=== PATIENT | male | born 1945 | race Caucasian/White ===

== ENCOUNTER 2018-04-01 08:09 | Day surgery (SDC) | payer OTHER ==
[~2018-04-01] VITALS: Ht 170.2 cm; Wt 81.3 kg
[~2018-04-01 08:09] MED LIST: ALBU90OI61 INH; ASCO1ER; ASPI81EC; Accuneb0.63 MG/3 INH; CALCAVITDA; CEPH500 PO; CIPR500 PO; CLON.1 PO; CYCL10; FLUT1DIS5 INH; Flonase 0.05% N16 GM; HYDACE5; HYDACE5 PO; IBUP600; IBUP600 PO; INDO50 PO; LORA2 PO; LOVA40 PO; MIRALAX17 GM; Mobic15 MG PO; Omeprazole20 M1 PO; PRED20 PO; RXHYDACE PO; RXLORA1 PO; SULTRIDS PO; TIOT18 INH; TRAZ50; UNKNOW MED; VITAMIN D31000 UNIT PO; VOLTAREN100 GM; Vitamin C500 M3 PO
== END 2018-04-01 13:38 | disposition home or self-care (01) ==
LOC: ORSCSDS 08:09
PROVIDERS: Otolaryngology
PROC: 09BM0ZZ Excision of Nasal Septum, Open Approach (ICD-10-PCS; principal; 2018-04-01 10:00)
PROC: 09BL0ZZ Excision of Nasal Turbinate, Open Approach (ICD-10-PCS; principal; 2018-04-01 10:00)
DX: J34.2 Deviated nasal septum (principal); J34.3 Hypertrophy of nasal turbinates; J34.89 Other specified disorders of nose and nasal sinuses; J44.9 Chronic obstructive pulmonary disease, unspecified; I10 Essential (primary) hypertension; F41.9 Anxiety disorder, unspecified; K21.9 Gastro-esophageal reflux disease without esophagitis; Z87.891 Personal history of nicotine dependence; Z79.899 Other long term (current) drug therapy
CPT/HCPCS: J1100; J2370; J2405; J2710; J3010; J7120

== ENCOUNTER 2018-09-30 11:58 | Observation (INO) | payer OTHER ==
[~2018-09-30] VITALS: Ht 170.2 cm; Wt 82.5 kg
[~2018-09-30 11:58] MED LIST changes: -ALBU90OI61 INH
[2018-09-30] MEDS ORDERED: VOLTAREN TOP (12:56)
[2018-09-30 13:02] LABS: BASOPHILS ABSOLUTE AUTO 0.07 K/mm3 (0.00-0.23); BASOPHILS PERCENT AUTO 1 % (0-2); EOSINOPHILS ABSOLUTE AUTO 0.17 K/mm3 (0.00-0.68); EOSINOPHILS PERCENT AUTO 2 % (0-6); Hematocrit 45.8 % (37.0-53.0); Hemoglobin 15.3 g/dL (13.5-17.5); IMMATURE GRAN ABSOLUTE AUTO 0.03 K/mm3 (0.00-0.10); IMMATURE GRAN PERCENT AUTO 0 % (0-1); LYMPHOCYTES ABSOLUTE AUTO 1.58 K/mm3 (0.84-5.20); LYMPHOCYTES PERCENT AUTO 18 % (21-46); MONOCYTES ABSOLUTE AUTO 0.82 K/mm3 (0.16-1.47); MONOCYTES PERCENT AUTO 9 % (4-13); Mean Corpuscular HGB 30.6 pg (26.0-34.0); Mean Corpuscular HGB Conc 33.4 g/dL (31.5-36.5); Mean Corpuscular Volume 92 fL (80-100); Mean Platelet Volume 9.2 fL (9.1-12.4); NEUTROPHILS ABSOLUTE AUTO 6.02 K/mm3 (1.96-9.15); NEUTROPHILS PERCENT AUTO 69 % (41-73); Platelet Count 244 K/mm3 (150-400); RDW Standard Deviation 43.6 fL (35.1-46.3); White Blood Cell Count 8.69 K/mm3 (4.00-11.30)
[2018-09-30 13:17] LABS: Alanine Aminotransfer (ALT/SGP 30 U/L (12-78); Albumin, Blood 3.7 g/dL (3.4-5.0); Albumin/Globulin Ratio 1.2 (0.8-1.8); Alk Phos 67 U/L (50-136); Anion Gap 8 mmol/L (6-16); Aspartate Aminotrans (AST/SGOT 19 U/L (12-37); Bilirubin, Total 0.6 mg/dL (0.1-1.0); Blood Urea Nitrogen 20 mg/dL (8-24); Bun/Creatinine Ratio 16.8 (12.0-20.0); CO2, Blood 24 mmol/L (21-32); Calcium, Blood 8.7 mg/dL (8.5-10.1); Chloride, Blood 103 mmol/L (98-108); Creatinine, Blood 1.19 mg/dL (0.60-1.20); Ethanol (Alcohol), Blood, Med <3 mg/dL; Globulin, Blood 3.1 g/dL (2.2-4.0); Glomerular Filtration Rate >60 (60-); Glucose, Blood 129 mg/dL (70-99); Potassium, Blood 4.1 mmol/L (3.5-5.5); Sodium, Blood 135 mmol/L (136-145); Total Protein, Blood 6.8 g/dL (6.4-8.2)
[2018-09-30] MEDS ORDERED: NITR.4SL SL (14:40)
[2018-09-30] MEDS ORDERED: ALBU90OI61 INH (14:46)
--- NOTE | 2018-09-30 17:10 | NUR ---
PT IS ALERT AND ORIENTED. HIS BROTHER TOLD THE NURSE IN THE ER THAT THE PT HAS BEEN MORE CONFUSED LATELY. NO COMPLAINTS OF PAIN. TELE ON, NSR AT 61 BPM. PT IS IMPULSIVE SO BED ALARM IS ON. SCD'S IN PLACE. URINAL AT THE BEDSIDE. WILL CONTINUE TO MONITOR.
--- NOTE | 2018-09-30 17:12 | NUR ---
Echocardiogram completed.
--- NOTE | 2018-09-30 17:57 | NUR ---
PT ARRIVED TO HOSPITAL ROOM AT 1600 VIA WHEELCHAIR.
[2018-10-01 05:16] LABS: CHOL/HDL RATIO 2.4; Cholesterol 155 mg/dL (50-200); HDL Cholesterol 65 mg/dL (>39); LDL/HDL RATIO 1.1; Low Density Lipoprotein Chol 71 mg/dL (0-110); Triglycerides 96 mg/dL (30-160); Very Low Density Lipoprot Chol 19 mg/dL (6-32)
--- NOTE | 2018-10-01 05:38 | NUR ---
SHIFT SUMMARY PT SLEPT WELL, USES URINAL AT BEDSIDE PER SELF. NO ACUTE EVENTS NOTED DURING THE NIGHT. WILL CONTINUE TO MONITOR.
--- NOTE | 2018-10-01 07:51 | NUR ---
SIGNIFICANT RIGHT SIDED HAND WEAKNESS WHEN SQUEEZING COMPARED TO PT'S LEFT SIDE.
--- NOTE | 2018-10-01 10:41 | NUR ---
PT IS ALERT AND ORIENTED AND COOPERATIVE WITH CARE. HE IS A SBA WITH A GAIT BELT. HE FORGETS HIS OWN LIMITATIONS. HIS FAMILY IS AT THE BEDSIDE. HE PARTICIPATED WITH OT AND PT TODAY. DR. CASTELLANO STATED THAT THE PATIENT CAN BE DISCHARGED HOME IF PT AND OT RECCOMEND SO. WILL CONTINUE TO MONITOR.
[2018-10-01] MEDS ORDERED: ASPI81CH PO (11:52)
[2018-10-01] MEDS ORDERED: CLOP75 PO (11:55)
[2018-10-01] MEDS ORDERED: AMLO5 PO (11:58)
--- NOTE | 2018-10-01 13:08 | NUR ---
OUTPATIENT PT/OT SCRIPT GIVEN TO PT. FOLLOW UP APPOINTMENTS MADE WITH [facility] AND REFERRAL TO ELECTRIC ENGINE MECHANIC MADE FOR LOOP RECORDER MONITORING.
--- NOTE | 2018-10-01 15:29 | NUR ---
PT DISCHARGED HOME WITH OUTPATIENT PHYSICAL AND OCCUPATIONAL THERAPY. PT TRANSPORTED DOWNSTAIRS IN WHEELCHAIR BY DEVELOPMENT ANALYST. PT TRANSPORTED HOME BY HIS BROTHER.
== END 2018-10-01 14:53 | disposition home or self-care (01) ==
LOC: ER 11:58 → MEDS 11:59 → ENPENDDIS 10-01 11:14 → MEDS 10-01 14:53
PROVIDERS: Emergency Medicine; ADMIT Internal Medicine
DX: I63.9 Cerebral infarction, unspecified (principal); F10.20 Alcohol dependence, uncomplicated; I10 Essential (primary) hypertension; J44.9 Chronic obstructive pulmonary disease, unspecified; I65.23 Occlusion and stenosis of bilateral carotid arteries; F41.9 Anxiety disorder, unspecified; E78.5 Hyperlipidemia, unspecified; K21.9 Gastro-esophageal reflux disease without esophagitis; Z87.891 Personal history of nicotine dependence; Z79.899 Other long term (current) drug therapy; Y90.0 Blood alcohol level of less than 20 mg/100 ml
CPT/HCPCS: 36415; 70450; 70551; 72125; 80053; 80061; 83036; 85025; 93005; 93010; 93306; 93880; 96372; 97112; 97162; 97166; 97530; 99285-25; G0378; G0480; J1650

== ENCOUNTER 2018-11-16 07:33 | Inpatient (IN) | payer OTHER ==
[~2018-11-16] VITALS: Ht 170.2 cm; Wt 87.4 kg
[~2018-11-16 07:33] MED LIST changes: +ALBU90OI61 INH; +AMLO5 PO; +ASPI81CH PO; +CLOP75 PO; +NITR.4SL SL; +VOLTAREN TOP
[2018-11-16 08:23] LABS: Source, Urine Clean Catch
[2018-11-16 08:57] LABS: Bilirubin, Urine Neg (Neg); Blood, Urine 1+ (Neg); Glucose Qualitative, Urine Neg (Neg); Ketones, Urine 1+ (Neg); Leukocyte Esterase, Urine Neg (Neg); Nitrite, Urine Neg (Neg); Protein, Urine 2+ (Neg); Urobilinogen, Urine 2+ (Normal)
[2018-11-16 09:00] LABS: Appearance, Urine Hazy (Clear); Color, Urine Yellow (P-Yellow)
[2018-11-16 09:04] LABS: Red Blood Cells, Urine 0-2 /hpf (0-2)
[2018-11-16 09:05] LABS: Bacteria Few /hpf; Mucus Mod (0-Heavy); Squamous Epithelial Cells Rare /hpf (Few)
[2018-11-16 09:06] LABS: BASOPHILS ABSOLUTE AUTO 0.06 K/mm3 (0.00-0.23); BASOPHILS PERCENT AUTO 0 % (0-2); EOSINOPHILS PERCENT AUTO 0 % (0-6); Hematocrit 38.8 % (37.0-53.0); Hemoglobin 12.8 g/dL (13.5-17.5); IMMATURE GRAN ABSOLUTE AUTO 1.53 K/mm3 (0.00-0.10); IMMATURE GRAN PERCENT AUTO 5 % (0-1); LYMPHOCYTES ABSOLUTE AUTO 0.47 K/mm3 (0.84-5.20); LYMPHOCYTES PERCENT AUTO 2 % (21-46); MONOCYTES ABSOLUTE AUTO 1.64 K/mm3 (0.16-1.47); MONOCYTES PERCENT AUTO 5 % (4-13); Mean Corpuscular Volume 91 fL (80-100); Mean Platelet Volume 8.9 fL (9.1-12.4); NEUTROPHILS PERCENT AUTO 88 % (41-73); Platelet Count 425 K/mm3 (150-400); RDW Coefficient Variation 12.8 % (11.7-14.2); RDW Standard Deviation 42.5 fL (35.1-46.3); Red Blood Cell Count 4.26 M/mm3 (4.30-5.90)
[2018-11-16 09:24] LABS: Albumin, Blood 2.1 g/dL (3.4-5.0); Albumin/Globulin Ratio 0.4 (0.8-1.8); Bilirubin, Total 0.9 mg/dL (0.1-1.0); Bun/Creatinine Ratio 28.7 (12.0-20.0); Calcium, Blood 8.4 mg/dL (8.5-10.1); Creatinine, Blood 1.64 mg/dL (0.60-1.20); Globulin, Blood 4.7 g/dL (2.2-4.0); Potassium, Blood 4.2 mmol/L (3.5-5.5); Total Protein, Blood 6.8 g/dL (6.4-8.2)
[2018-11-16] MEDS ORDERED: CLON.1 PO (13:15)
--- NOTE | 2018-11-16 18:39 | NUR ---
SHIFT SUMMARY. 1500 PT ADMITTED TO MEDICAL FLOOR VIA GURNEY. PT SELF TRANSFERED TO BED WITH CGA. PT HAS REQUIRED 2L O2 NC AT REST AND 4L O2 WITH ACTIVITY. DYSPNEA WITH EXERTION. DR. WILLIAMSON REPORTS THAT HE SPOKE WITH DR. TUBBS AND DR. TUBBS PLANS TO SEE PT TOMORROW FOR PROCEDURE. IV FLUIDS STARTED, 1G OF ROCEPHIN IV GIVEN. PT C/O CHRONIC PAIN TO BACK, NORCO 5/325 PO GIVEN. NO N/V. GOOD PO INTAKE.
--- NOTE | 2018-11-17 05:28 | NUR ---
SHIFT SUMMARY PT HAS BEEN AWAKE MUCH OF THE NIGHT. HAS COUGHING ATTACKS WHICH MAKE HIM MORE DYSPNEIC AND ANXIOUS. SPUTUM SPECIMEN OBTAINED, AND HOSPITALIST NOTIFIED OF PT COUGH. ORDERS RECEIVED. RT IN FOR PRN BREATHING TREATMENTS T/O NIGHT. PT MEDICATED FOR RIGHT FOOT PAIN THIS AM. IVF'S INFUSING PER PUMP WITHOUT DIFFICULTY. WILL CONTINUE TO MONITOR.
[2018-11-17 05:30] LABS: BASOPHILS ABSOLUTE AUTO 0.07 K/mm3 (0.00-0.23); BASOPHILS PERCENT AUTO 0 % (0-2); EOSINOPHILS ABSOLUTE AUTO 0.22 K/mm3 (0.00-0.68); EOSINOPHILS PERCENT AUTO 1 % (0-6); Hematocrit 37.2 % (37.0-53.0); Hemoglobin 12.2 g/dL (13.5-17.5); IMMATURE GRAN PERCENT AUTO 2 % (0-1); LYMPHOCYTES ABSOLUTE AUTO 0.75 K/mm3 (0.84-5.20); LYMPHOCYTES PERCENT AUTO 3 % (21-46); MONOCYTES ABSOLUTE AUTO 1.53 K/mm3 (0.16-1.47); MONOCYTES PERCENT AUTO 5 % (4-13); Mean Corpuscular HGB 29.9 pg (26.0-34.0); Mean Corpuscular HGB Conc 32.8 g/dL (31.5-36.5); Mean Corpuscular Volume 91 fL (80-100); Mean Platelet Volume 8.5 fL (9.1-12.4); NEUTROPHILS ABSOLUTE AUTO 26.69 K/mm3 (1.96-9.15); NEUTROPHILS PERCENT AUTO 90 % (41-73); Platelet Count 420 K/mm3 (150-400); RDW Standard Deviation 43.5 fL (35.1-46.3); Red Blood Cell Count 4.08 M/mm3 (4.30-5.90); White Blood Cell Count 29.76 K/mm3 (4.00-11.30)
[2018-11-17 06:04] LABS: Bun/Creatinine Ratio 33.3 (12.0-20.0); Creatinine, Blood 1.53 mg/dL (0.60-1.20); Potassium, Blood 4.2 mmol/L (3.5-5.5)
--- NOTE | 2018-11-17 13:10 | NUR ---
PATIENT ARRIVED FROM MEDICAL FLOOR ROOM 324 TO ICU 15 AFTER RAPID RESPONSE WAS CALLED, PATIENT ARRIVED VIA FLOOR BED AND WAS MOVED TO ICU BED VIA SLIDER WITH 4 ASSIST, ON NRB AT 15 L, VISIBLE WORK OF ACCESSORY MUSCLES BREATHING, RAMSAY CATHETER WAS INSERTED D/T PATIENT INABILITY TO VOID, IMMEDIATE URINE RETURN NOTED, UA SAMPLE SENT, PATIENT WAS THEN PLACED ON NC BY JUSTIN RT, PATIENT ABLE TO SPEAK AT THIS TIME, AND STATED THAT "I CHOCKED ON SOME CHICKEN FROM MY LUNCH, BY I CHOKE ON MY FOOD ALL THE TIME", DR. TUBBS IN TO SEE PATIENT, NEW ORDERS RECEIVED. PATIENT WAS ORIENTED TO ROOM AND NEW ENVIRONMENT, CALL LIGHT EXPLAINED AND IN REACH, WILL CONTINUE TO MONITOR.
--- NOTE | 2018-11-17 13:20 | NUR ---
PT TRANSPORTED TO ICU AT 13:10.
[2018-11-17 13:29] LABS: Source, Urine Catheter
[2018-11-17 13:33] LABS: Appearance, Urine Clear (Clear); Bilirubin, Urine Neg (Neg); Blood, Urine Neg (Neg); Color, Urine Yellow (P-Yellow); Glucose Qualitative, Urine Neg (Neg); Ketones, Urine Neg (Neg); Leukocyte Esterase, Urine Neg (Neg); Nitrite, Urine Neg (Neg); Protein, Urine 1+ (Neg); Urobilinogen, Urine 1+ (Normal)
--- NOTE | 2018-11-17 14:45 | NUR ---
THORACENTESIS PERFORMED AT BEDSIDE BY DR. TUBBS, WITH ASSISTANCE OF THIS RN, AND JACQUE, STAFF DEVELOPMENT MANAGER, PATIENT WAS PLACED IN A SITTING POSITION LEANING FORWARD AND PLEURAL FLUID EXTRACTED FROM LEFT LUNG, PATIENT TOLERATED WELL, WHEN PROCEDURE WAS FINISHED BANDAID APPLIED TO INCISION SITE AND PATIENT RETURNED TO BED, POSITIONED FOR COMFORT, CALL LIGHT IN REACH, WILL CONTINUE TO MONITOR.
[2018-11-17 16:06] LABS: Automated BF RBC Count 0.009 M/mm3 (0-0); Body Fluid WBC Count 8699 /mm3 (0-999); RBC Count, Body Fluid 9000 /mm3 (0-0)
[2018-11-17 16:07] LABS: Automated BF WBC Count 8.699 K/mm3 (0-999)
[2018-11-17 16:14] LABS: Glucose, Body Fluid 1 mg/dL; Protein, Body Fluid 4.6 g/dL
[2018-11-17 16:23] LABS: Lactate Dehydrogenase, Body Fl 2668 U/L
[2018-11-17 17:07] LABS: Appearance, Body Fluid Cloudy (Clear); Total Cell Count, Body Fluid 100
--- NOTE | 2018-11-17 17:55 | NUR ---
SHIFT SUMMARY NOTE: PATIENT RESTING COMFORTABLY, STATES THAT HE "FEELS BETTER" AFTER THORACENTESIS, PATIENT ARRIVED IN ICU 15 AFTER RAPID RESPONSE WAS CALLED ON HIM AFTER HE ASPIRATED ON CHICKEN WHILE EATING LUNCH, PLEURAL FLUID SEND TO LAB FOR ANALYSIS, RAMSAY CATHETER WAS INSERTED D/T PATIENT'S EXTREME SOB WITH EXERTION, CONTINUOUS TO DRAIN DARK YELLOW CLEAR URINE, PATIENT IS NOW ON ZOSYN AND VACOMYCIN, CALL LIGHT IN REACH, WILL CONTINUE TO MONITOR AND GIVE REPORT TO ONCOMING SULKY DRIVER. FOR DETAILS SEE SHIFT ASSESSMENT DOCUMENTATION AND NURSES NOTES.
--- NOTE | 2018-11-17 20:24 | NUR ---
CARE ASSUMED REPORT RECEIVED, CARE ASSUMED AT 1900. UPON ARRIVAL TO SHIFT, PT ON 9 LPM NASAL CANNULA. PT PLACED ON OXYMIZER BY TATYANA, RT. 02 SAT HIGH 80'S, LOW 90'S, TITRATED TO 10 LPM. OTHERWISE, VITALS STABLE. PT CALM, IN NO SIGNS OF ACUTE DISTRESS. DISCUSSED PLAN OF CARE WITH PT AND PT AGREEABLE. SEE SHIFT ASSESSMENT/VITALS FLOWSHEET. PT AGREES TO CALL FOR NEEDS.
--- NOTE | 2018-11-18 02:46 | NUR ---
UPDATE PT CONTINUES TO REQUIRE 10 LPM OXYMIZER TO MAINTAIN SATS IN HIGH 80'S, LOW 90'S. PT NOTED ON SEVERAL OCCASIONS TO WAKE UP FROM DEEP SLEEP ANXIOUS, SHORT OF BREATH, TACHYPNEIC AND DESATURATING INTO MID TO LOW 80'S. ABLE TO VERBALLY REDIRECT PATIENT INITIALLY, BUT EPISODES BECAME MORE FREQUENT AND PT BECAME INCREASINGLY AGITATED AND UNABLE TO EXPRESS NEEDS. LUNG SOUNDS CONTINUE TO BE COARSE THROUGHOUT. UPDATED DR. TUBBS. NEW ORDER FOR BIPAP. RT TATYANA NOTIFIED. MEANWHILE PT COMPLAINING OF CHEST PAIN WITH INCREASED BP. NO CHANGES NOTED TO HEART MONITOR. NITRO GIVEN, CHEST PAIN AND ANXIETY RESOLVED. BIPAP PLACED BY RT TATYANA AND SINCE THEN PT HAS SLEPT SOUNDLY, AROUSING EASILY FOR REASSESSMENT.
[2018-11-18 03:57] LABS: BASOPHILS ABSOLUTE AUTO 0.04 K/mm3 (0.00-0.23); BASOPHILS PERCENT AUTO 0 % (0-2); EOSINOPHILS ABSOLUTE AUTO 0.01 K/mm3 (0.00-0.68); EOSINOPHILS PERCENT AUTO 0 % (0-6); Hematocrit 35.1 % (37.0-53.0); Hemoglobin 11.1 g/dL (13.5-17.5); IMMATURE GRAN ABSOLUTE AUTO 0.19 K/mm3 (0.00-0.10); IMMATURE GRAN PERCENT AUTO 1 % (0-1); LYMPHOCYTES ABSOLUTE AUTO 0.37 K/mm3 (0.84-5.20); LYMPHOCYTES PERCENT AUTO 2 % (21-46); MONOCYTES ABSOLUTE AUTO 0.68 K/mm3 (0.16-1.47); MONOCYTES PERCENT AUTO 3 % (4-13); Mean Corpuscular HGB 29.1 pg (26.0-34.0); Mean Corpuscular HGB Conc 31.6 g/dL (31.5-36.5); Mean Corpuscular Volume 92 fL (80-100); NEUTROPHILS PERCENT AUTO 95 % (41-73); Platelet Count 390 K/mm3 (150-400); RDW Coefficient Variation 13.2 % (11.7-14.2); RDW Standard Deviation 44.5 fL (35.1-46.3); Red Blood Cell Count 3.81 M/mm3 (4.30-5.90); White Blood Cell Count 23.19 K/mm3 (4.00-11.30)
[2018-11-18 04:15] LABS: Anion Gap 7 mmol/L (6-16); Blood Urea Nitrogen 39 mg/dL (8-24); Bun/Creatinine Ratio 33.9 (12.0-20.0); CO2, Blood 20 mmol/L (21-32); Calcium, Blood 7.9 mg/dL (8.5-10.1); Chloride, Blood 109 mmol/L (98-108); Creatinine, Blood 1.15 mg/dL (0.60-1.20); Glomerular Filtration Rate >60 (60-); Glucose, Blood 180 mg/dL (70-99); Potassium, Blood 4.3 mmol/L (3.5-5.5); Sodium, Blood 136 mmol/L (136-145)
--- NOTE | 2018-11-18 06:27 | NUR ---
SUMMARY SINCE PREVIOUS NOTE, PT ASLEEP ON BIPAP. WHEN WAKING PATIENT UP FOR MORNING ASSESSMENT, PT CONFUSED AND FEARFUL. AFTER APPROX 5 MINUTES OF LIGHTS ON AND TALKING WITH PATIENT HE BEGAN TO REORIENT HIMSELF. SINCE THEN, PT ON OXYMIZER, 02 SATS IN 90'S. PT AROUSES EASILY, ALERT AND ORIENTED. OTHERWISE, ASSESSMENTS UNCHANGED. VITALS STABLE, SEE FLOWSHEET.
--- NOTE | 2018-11-18 07:05 | NUR ---
ASSUMED CARE: RECEIVED REPORT FROM NOC RN. PT APPEARS TO BE SLEEPING UPON ENTERING ROOM WITH HEAD OF BED AT APPROX 30 DEGREE ANGLE. PT IS NOTED TO BE ON 10L OXYMIZER SATING AT 90%. NO DISTRESS NOTED. WILL CONTINUE TO MONITOR AND ASSESS FURTHER.
--- NOTE | 2018-11-18 07:12 | NUR ---
REPORT TO INDER YEE TO ASSUME CARE
--- NOTE | 2018-11-18 10:58 | NUR ---
RESPRATORY DISTRESS: PT CALLS RN TO BEDSIDE STATING HE "CAN'T BREATH" O2 SATS ARE NOTED TO BE APPROX 88% PT IS COUGHING AND HACKING NOTED TO BE VERY SHORT OF BREATH. RT CAME TO BEDSIDE AND PLACED PT ON BIPAP, PT UNABLE TO TOLERATE D/T INCREASED COUGHING. DR TUBBS NEAR BEDSIDE AND DISCUSSED OPTIONS. PLACED PT ON AIRVO @ 45 L/MIN AND 56% FIO2. ALSO ORDER FOR ATIVAN. ADMINISTERED AND DECREASE IN COUGHING AND PT O2 NOTED AT 93% AT THIS TIME.
--- NOTE | 2018-11-18 18:10 | NUR ---
SHIFT SUMMARY: PT HAS HAD SOME CHANGES TO RESPRATORY STATUS T/O THE SHIFT. PT HAS HAD A COUPLE RESPRATORY EVENTS A RESULT OF EXCESIVE COUGHING. PT WAS NOTED TO BE HACKING EXCESSIVLY CAUSING A FEELING OF ANXIETY NOTED BY PT STATING "I CAN'T BREATH" O2 SATS WOULD BE NOTED TO BE AT APPROX 90% OR HIGHER. ATIVAN GIVEN TO HELP WITH ANXIETY AND AIR HUNGER PER DR ORDERS. PT WAS PLACED ON THE AIRVO AT 40L O2. PT UNABLE TO TOLLERATE BIPAP DURING THE DAY D/T EXCESSIVE COUGHING AND NEEDING TO SPIT OUT SPUTUM. SPUTUM IS NOTED TO BE BETWEEN YELLOW AND JOHNSON IN COLOR THAT IS NOTED TO BE EXTREAMLY THICK. WILL CONTINUE TO MONITOR AND REPORT TO ON COMING RN. CALL LIGHT IN REACH. PT HAS BEEN PROVIDED PUDDING THICK DIET T/O THE DAY WITH NO THIN LIQUIDS.
--- NOTE | 2018-11-19 02:41 | NUR ---
PT AWAKENS WITH AGITATION DEMANDING DRINKS OF WATER. PT PULLING OFF LINES. PT GIVEN FRESH PUDDING-THICKENED LEMON WATER. PT YELLED, "GET ME WATER" "I'LL GET UP TO THAT SINK AND GET MY OWN". PT WITH TACHYPNEA AND COUGHING UP PINK-YELLOW PHLEGM. PT ENCOURAGED TO TRY AND RELAX. PT GIVEN ATIVAN 1mg IVP. PT CONTINUING TO COUGH UP YELLOW FROTHY PHLEGM. SATS REMAINING 91-93% WHILE ON AIRVO. PT
--- NOTE | 2018-11-19 02:47 | NUR ---
PT MORE CALM AND DRINKING HIS WATER (PUDDING/MILKSHAKE THICK SO CAN DRINK WITH A STRAW). PT CONTINUING TO HAVE PRODUCTIVE COUGH. WILL CONTINUE TO MONITOR.
[2018-11-19 04:01] LABS: Hematocrit 35.1 % (37.0-53.0); Hemoglobin 11.4 g/dL (13.5-17.5); Mean Corpuscular HGB 29.3 pg (26.0-34.0); Mean Corpuscular HGB Conc 32.5 g/dL (31.5-36.5); Mean Corpuscular Volume 90 fL (80-100); Mean Platelet Volume 8.7 fL (9.1-12.4); Platelet Count 475 K/mm3 (150-400); RDW Coefficient Variation 13.3 % (11.7-14.2); RDW Standard Deviation 44.1 fL (35.1-46.3); Red Blood Cell Count 3.89 M/mm3 (4.30-5.90); White Blood Cell Count 27.11 K/mm3 (4.00-11.30)
--- NOTE | 2018-11-19 04:06 | NUR ---
PT CONTINUING COUGHING UP THICK YELLOW PHLEGM. BED CPT ON. PT TOLERATING WELL.
[2018-11-19 04:22] LABS: Albumin, Blood 1.8 g/dL (3.4-5.0); Anion Gap 4 mmol/L (6-16); Blood Urea Nitrogen 43 mg/dL (8-24); Bun/Creatinine Ratio 39.8 (12.0-20.0); CO2, Blood 24 mmol/L (21-32); Chloride, Blood 112 mmol/L (98-108); Creatinine, Blood 1.08 mg/dL (0.60-1.20); Glomerular Filtration Rate >60 (60-); Glucose, Blood 163 mg/dL (70-99); Phosphorus, Blood 2.8 mg/dL (2.5-4.9); Potassium, Blood 4.5 mmol/L (3.5-5.5); Sodium, Blood 140 mmol/L (136-145)
[2018-11-19 04:27] LABS: BAND PERCENT MAN 8 % (0-8); BASOPHILS PERCENT MAN 0 % (0-2); EOSINOPHILS PERCENT MAN 0 % (0-6); LYMPHOCYTES ABSOLUTE MAN 1.08 K/mm3 (0.84-5.20); LYMPHOCYTES PERCENT MAN 4 % (21-46); MONOCYTES ABSOLUTE MAN 0.27 K/mm3 (0.16-1.47); MONOCYTES PERCENT MAN 1 % (4-13); NEUTROPHILS ABSOLUTE MAN 25.75 K/mm3 (1.96-9.15); SEG NEUTROPHILS PERCENT MAN 87 % (41-73); TOTAL CELLS COUNTED 100
--- NOTE | 2018-11-19 05:27 | NUR ---
PT RESTING C/ EYES CLOSED. VSS. CALL LIGHT WITHIN REACH.
--- NOTE | 2018-11-19 07:27 | NUR ---
ASSUMED CARE: RECEIVED REPORT FROM NOC RN. PT APPEARS TO BE SLEEPING AT TIME OF REPORT. AIRVO IN PLACE SATTING LOW 90'S. CALL LIGHT IN REACH. DISCUSSED WITH CARE TEAM PT IS TO HAVE FULL LIQUID DIET AT A PUDDING THICK CONSISTANCY. WILL ASSESS FURHTER AND CONTINUE TO MONITOR
--- NOTE | 2018-11-19 10:57 | NUR ---
SPEECH: SPEECH THERAPY IN TO ASSESS PT. PT IS NOTED TO BE BREATHING >30 BREATHS PER MIN. SPEECH STATES PT IS BREATHING TO FAST TO HAVE ANYTHING BY MOUTH AND RECOMENDS NPO. DR TUBBS MADE AWARE.
--- NOTE | 2018-11-19 10:58 | NUR ---
INCREASED RR: DR TUBBS INTO ASSESS PT FOR POSSIBLE NEED FOR PT TO BE INTUBATED. UPON ASSESSMENT STATES NO NEED FOR IT AT THIS, BUT WILL CONTINUE TO ASSESS FURTHER AND MONITOR FOR NEED.
--- NOTE | 2018-11-19 11:00 | NUR ---
HOSPITAL TRANSFER: BELT WORKER CALLED TO [facility] TO SEE ABOUT POSSIBLE BED OPENING, NO BEDS AVAILABLE AT THIS TIME, POSSIBLY LATE AFTERNOON. WILL INFORM DR TUBBS.
--- NOTE | 2018-11-19 11:04 | NUR ---
RESPERATION RATE: RATE 24 @ REST
--- NOTE | 2018-11-19 14:45 | NUR ---
DISCHARGE: STAN HAYES TRANSFERED PT ON TO STRETCHER AND PT OUT THE DOOR WITH SECURITY. PT APPEARS STABLE AT THIS TIME. DISCUSSED POSSIBLE INTUBATION PRIOR TO TRANSPORT, BUT DECIDED AGAINST IT. PT APPEARS TO BE STABLE AT TIME OF DEPARTURE. PRECEDEX INFUSING AND ADDITIONAL BAG SENT FOR CONTINUED INFUSION. LR INFUSION RUNNING AT 125ML/HR UPON DEPARTURE. REPORT GIVEN TO JET LOVING IN [facility].
[2018-11-21 01:07] LABS: (LD) FRACTION 1 10 % (17-32); (LD) FRACTION 2 16 % (25-40); (LD) FRACTION 3 19 % (17-27); (LD) FRACTION 4 17 % (5-13); (LD) FRACTION 5 38 % (4-20); LDH 100 IU/L (121-224)
== END 2018-11-19 14:49 | disposition short-term general hospital (02) | DRG 871 ==
LOC: ER 07:33 → ERHOLD 12:53 → MEDS 12:53 → ICUW 14:50 → MEDS 14:52 → ICUW 11-17 13:07
PROVIDERS: Internal Medicine Critical Care Medicine; Physician Assistant; ADMIT Internal Medicine
PROC: 5A09357 Assistance with Respiratory Ventilation, Less than 24 Consecutive Hours, Continuous Positive Airway Pressure (ICD-10-PCS; principal; 2018-11-18)
DX: A41.50 Gram-negative sepsis, unspecified (principal); N17.0 Acute kidney failure with tubular necrosis; J96.01 Acute respiratory failure with hypoxia; J69.0 Pneumonitis due to inhalation of food and vomit; J86.9 Pyothorax without fistula; J96.02 Acute respiratory failure with hypercapnia; J90 Pleural effusion, not elsewhere classified; E87.1 Hypo-osmolality and hyponatremia; F10.239 Alcohol dependence with withdrawal, unspecified; R65.20 Severe sepsis without septic shock; Z79.82 Long term (current) use of aspirin; E78.5 Hyperlipidemia, unspecified; K21.9 Gastro-esophageal reflux disease without esophagitis; I10 Essential (primary) hypertension; Z90.79 Acquired absence of other genital organ(s); Z87.891 Personal history of nicotine dependence; M19.041 Primary osteoarthritis, right hand; M19.042 Primary osteoarthritis, left hand; J43.2 Centrilobular emphysema; Z98.1 Arthrodesis status; I67.9 Cerebrovascular disease, unspecified; I69.391 Dysphagia following cerebral infarction
CPT/HCPCS: 31720; 36415; 71045; 71046; 71250; 74176; 80048; 80053; 80069; 81001; 82042; 82570; 82945; 83605; 83615; 83690; 83880; 83986; 84145; 84157; 84300; 84484; 85025; 87070; 87077; 87147; 87186; 87205; 88108; 88305; 89051; 92610; 93005; 93010; 94640; 94660; 94760; 96365; 96375; 99285-25; A9270-GY; J0690; J0696; J1644; J1885; J2060; J2270; J2543; J2920; J2930; J3010; J3370; J7030; J7120; P9041

== ENCOUNTER 2019-01-27 06:05 | Day surgery (SDC) | payer OTHER ==
[~2019-01-27 06:05] MED LIST changes: +ALBU3IS INH; +Azor 5-20 MG T1 EACH; +Culturelle1 CAP; +FOLGARD TABLET1 EACH PO; +MIRALAX17 GM PO; +TAMS.4ER PO; +THERAGRAN-M PR1 EACH PO; +TUMS500 MG PO; +Vitamin C100 M1 PO
--- NOTE | 2019-01-27 07:05 | NUR ---
ANCEF 1G IVPB GIVEN.
--- NOTE | 2019-01-27 07:51 | NUR ---
LINQ PLACED BY DR MUSHTAQ Sosa UPPER CHEST. PT TOLERATED PROCESURE WELL. IV REMOVED. PT VERBALIZED UNDERSTANDING OF WRITTEN AND VERBAL D/C INST. PT TAKEN OUT OF THE HRT CENTER VIA W/C.
== END 2019-01-27 22:44 | disposition home or self-care (01) ==
LOC: MHTC 06:05
PROC: 0JH602Z Insertion of Monitoring Device into Chest Subcutaneous Tissue and Fascia, Open Approach (ICD-10-PCS; principal; 2019-01-27)
DX: I63.81 Other cerebral infarction due to occlusion or stenosis of small artery (principal); J44.9 Chronic obstructive pulmonary disease, unspecified; K21.9 Gastro-esophageal reflux disease without esophagitis; I10 Essential (primary) hypertension; Z79.899 Other long term (current) drug therapy; Z79.82 Long term (current) use of aspirin; Z79.891 Long term (current) use of opiate analgesic; Z87.891 Personal history of nicotine dependence
CPT/HCPCS: 33285; C1764; J0690

== ENCOUNTER 2019-07-10 16:49 | Emergency (ER) | payer OTHER ==
[~2019-07-10] VITALS: Ht 170.2 cm; Wt 88.5 kg
[2019-07-10] MEDS ORDERED: Norco 5-325 Ta1 EACH PO (18:30)
== END 2019-07-10 18:49 | disposition home or self-care (01) ==
LOC: ER 16:49
DX: S69.91XA Unspecified injury of right wrist, hand and finger(s), initial encounter (principal); I10 Essential (primary) hypertension; J44.9 Chronic obstructive pulmonary disease, unspecified; F41.9 Anxiety disorder, unspecified; E78.5 Hyperlipidemia, unspecified; K21.9 Gastro-esophageal reflux disease without esophagitis; Z79.899 Other long term (current) drug therapy; Z79.82 Long term (current) use of aspirin; Z79.51 Long term (current) use of inhaled steroids; Z86.73 Personal history of transient ischemic attack (TIA), and cerebral infarction without residual deficits; Z87.891 Personal history of nicotine dependence; W01.0XXA Fall on same level from slipping, tripping and stumbling without subsequent striking against object, initial encounter
CPT/HCPCS: 29125; 73140; 99283-25

== ENCOUNTER 2019-08-24 08:02 | Day surgery (SDC) | payer OTHER ==
[~2019-08-24] VITALS: Ht 170.2 cm; Wt 86.0 kg
[~2019-08-24 08:02] MED LIST changes: +FURO20 PO; +Norco 5-325 Ta1 EACH PO
--- NOTE | 2019-08-24 08:34 | NUR ---
History, Chart, Medications and Allergies reviewed before start of procedure. Patient confirms NPO status and agrees with scheduled surgery. Reports taking colon prep with clear results. Patient States Post-Procedure ride home has been arranged with his brother, Sharif.
--- NOTE | 2019-08-24 09:42 | NUR ---
08/24/19 0942 Liset Kaiser History, Chart, Medications and Allergies reviewed before start of procedure.PATIENT DETERMINED TO BE ASA APPROPRIATE FOR PROPOFOL SEDATION PRIOR TO START OF PROCEDURE BY .MONITOR INTACT WITH CONTINUOUS PULSE OXIMETRY AND INTERMITTENT BP.3-LEAD EKG REVIEWED WITH PHYSICIAN PRIOR TO START OF PROCEDURE.O2 VIA N/C INTACT THROUGHOUT SEDATION/PROCEDURE.
--- NOTE | 2019-08-24 10:15 | NUR ---
Patient up to Ambulate independently. Gait steady. Discharge instructions reviewed with patient. Patient verbalizes understanding. Copy given to patient to take home. Pre-Op teaching done. Pt verbalizes understanding. Patient States Post-Procedure ride home has been arranged.
== END 2019-08-24 10:24 | disposition home or self-care (01) ==
LOC: ORSCMMR 08:02 → ORD 09:00 → ORSCMMR 10:24
PROVIDERS: Internal Medicine Gastroenterology
PROC: 0DBN8ZX Excision of Sigmoid Colon, Via Natural or Artificial Opening Endoscopic, Diagnostic (ICD-10-PCS; principal; 2019-08-24 09:00)
PROC: 0DBL8ZX Excision of Transverse Colon, Via Natural or Artificial Opening Endoscopic, Diagnostic (ICD-10-PCS; principal; 2019-08-24 09:00)
DX: Z12.11 Encounter for screening for malignant neoplasm of colon (principal); D12.3 Benign neoplasm of transverse colon; K63.5 Polyp of colon; Z86.010 Personal history of colon polyps; Z86.73 Personal history of transient ischemic attack (TIA), and cerebral infarction without residual deficits; I10 Essential (primary) hypertension; J44.9 Chronic obstructive pulmonary disease, unspecified; N40.0 Benign prostatic hyperplasia without lower urinary tract symptoms; E78.00 Pure hypercholesterolemia, unspecified; Z87.891 Personal history of nicotine dependence; Z79.01 Long term (current) use of anticoagulants; Z79.82 Long term (current) use of aspirin; Z79.899 Other long term (current) drug therapy
CPT/HCPCS: 88305; J2704; J7120

== ENCOUNTER 2020-03-10 15:08 | Observation (INO) | payer OTHER ==
[~2020-03-10] VITALS: Ht 170.2 cm; Wt 83.2 kg
[2020-03-10 15:37] LABS: BASOPHILS ABSOLUTE AUTO 0.07 K/mm3 (0.00-0.23); BASOPHILS PERCENT AUTO 1 % (0-2); EOSINOPHILS ABSOLUTE AUTO 0.25 K/mm3 (0.00-0.68); EOSINOPHILS PERCENT AUTO 2 % (0-6); Hematocrit 47.3 % (37.0-53.0); Hemoglobin 15.7 g/dL (13.5-17.5); IMMATURE GRAN ABSOLUTE AUTO 0.09 K/mm3 (0.00-0.10); IMMATURE GRAN PERCENT AUTO 1 % (0-1); LYMPHOCYTES ABSOLUTE AUTO 1.31 K/mm3 (0.84-5.20); LYMPHOCYTES PERCENT AUTO 9 % (21-46); MONOCYTES ABSOLUTE AUTO 1.16 K/mm3 (0.16-1.47); MONOCYTES PERCENT AUTO 8 % (4-13); Mean Corpuscular HGB 30.7 pg (26.0-34.0); Mean Corpuscular HGB Conc 33.2 g/dL (31.5-36.5); Mean Corpuscular Volume 93 fL (80-100); Mean Platelet Volume 8.9 fL (9.1-12.4); NEUTROPHILS PERCENT AUTO 80 % (41-73); Platelet Count 225 K/mm3 (150-400); RDW Coefficient Variation 12.7 % (11.7-14.2); RDW Standard Deviation 43.7 fL (35.1-46.3); Red Blood Cell Count 5.11 M/mm3 (4.30-5.90); White Blood Cell Count 14.58 K/mm3 (4.00-11.30)
[2020-03-10 16:10] LABS: Alanine Aminotransfer (ALT/SGP 33 U/L (12-78); Albumin, Blood 3.7 g/dL (3.4-5.0); Albumin/Globulin Ratio 1.1 (0.8-1.8); Alk Phos 49 U/L (50-136); Anion Gap 10 mmol/L (6-16); Aspartate Aminotrans (AST/SGOT 26 U/L (12-37); Bilirubin, Total 0.6 mg/dL (0.1-1.0); Blood Urea Nitrogen 35 mg/dL (8-24); Bun/Creatinine Ratio 26.5 (12.0-20.0); CO2, Blood 20 mmol/L (21-32); Calcium, Blood 8.6 mg/dL (8.5-10.1); Chloride, Blood 106 mmol/L (98-108); Creatinine, Blood 1.32 mg/dL (0.60-1.20); Globulin, Blood 3.5 g/dL (2.2-4.0); Glomerular Filtration Rate 56 (60-); Glucose, Blood 95 mg/dL (70-99); Sodium, Blood 136 mmol/L (136-145); Total Protein, Blood 7.2 g/dL (6.4-8.2); Troponin I <0.015 ng/mL (0.000-0.040)
--- NOTE | 2020-03-11 04:47 | NUR ---
SHIFT SUMMARY PT NEW ADMIT YESTARDAY EVENING. AAOX4. DISCOMFORT CONTROLLED WITH 1 NORCO Q4H + DILAUDID 0.2MG IV X1 FOR BREAKTHROUGH. NO NAUSEA/EMESIS. HEMATOMA WITH ABRASION TO LEFT LOWER LATERAL RIBS NOTED WITH SMALL AMOUNT SS DRAINAGE. LUNG SOUND CEARL, DIMINISHED IN BASES BILATERALLY. PT WITH INCREASED PAIN POST DEEP BREATHING, SOB NOTED. PT ENCOURAGED TO TAKE DEEP OF BREATHES POSSIBLE. PT MOVES WELL IN BED. RESTING WELL THIS AM. PT ORIENTED TO ROOM + CALL LIGHT USE.
[2020-03-11 05:09] LABS: BASOPHILS ABSOLUTE AUTO 0.07 K/mm3 (0.00-0.23); BASOPHILS PERCENT AUTO 1 % (0-2); EOSINOPHILS ABSOLUTE AUTO 0.39 K/mm3 (0.00-0.68); EOSINOPHILS PERCENT AUTO 5 % (0-6); Hematocrit 44.3 % (37.0-53.0); Hemoglobin 14.4 g/dL (13.5-17.5); IMMATURE GRAN ABSOLUTE AUTO 0.03 K/mm3 (0.00-0.10); IMMATURE GRAN PERCENT AUTO 0 % (0-1); LYMPHOCYTES ABSOLUTE AUTO 1.78 K/mm3 (0.84-5.20); LYMPHOCYTES PERCENT AUTO 23 % (21-46); MONOCYTES ABSOLUTE AUTO 0.99 K/mm3 (0.16-1.47); MONOCYTES PERCENT AUTO 13 % (4-13); Mean Corpuscular HGB 30.5 pg (26.0-34.0); Mean Corpuscular HGB Conc 32.5 g/dL (31.5-36.5); Mean Corpuscular Volume 94 fL (80-100); Mean Platelet Volume 9.3 fL (9.1-12.4); NEUTROPHILS ABSOLUTE AUTO 4.64 K/mm3 (1.96-9.15); NEUTROPHILS PERCENT AUTO 59 % (41-73); Platelet Count 203 K/mm3 (150-400); RDW Coefficient Variation 12.8 % (11.7-14.2); RDW Standard Deviation 44.5 fL (35.1-46.3); Red Blood Cell Count 4.72 M/mm3 (4.30-5.90)
[2020-03-11 05:29] LABS: Anion Gap 6 mmol/L (6-16); Blood Urea Nitrogen 26 mg/dL (8-24); Bun/Creatinine Ratio 22.8 (12.0-20.0); CO2, Blood 24 mmol/L (21-32); Calcium, Blood 8.2 mg/dL (8.5-10.1); Chloride, Blood 107 mmol/L (98-108); Creatinine, Blood 1.14 mg/dL (0.60-1.20); Glomerular Filtration Rate >60 (60-); Glucose, Blood 104 mg/dL (70-99); Potassium, Blood 4.5 mmol/L (3.5-5.5); Sodium, Blood 137 mmol/L (136-145); Troponin I <0.015 ng/mL (0.000-0.040)
--- NOTE | 2020-03-11 15:22 | NUR ---
SHIFT SUMMARY SINCE ASSUMING CARE AT APPROX 1215, PT HAS DENIED NEED FOR PAIN MEDICATIONS. ENCOURAGING USE OF I/S AT BEDSIDE, BUT PT KINDLY REFUSES. PHYSICAL THERAPY WORKED WITH PT THIS AFTERNOON. PT RESTING IN CHAIR WITH CALL LIGHT IN REACH.
--- NOTE | 2020-03-11 15:53 | NUR ---
RECEIVED REPORT FROM PREVIOUS NURSE AND ASSUMED CARE OF PT.
--- NOTE | 2020-03-11 16:53 | NUR ---
PT HAS BEEN RESTING IN BED. HE HAS NO COMPLAINTS. HE IS ABLE TO MAKE HIS NEEDS KNOWN AND HAS HIS CALL LIGHT IN REACH.
--- NOTE | 2020-03-12 04:36 | NUR ---
SHIFT SUMMARY PT RESTED WELL T/O NIGHT. AAOX4/OTOE-[place] AT TIMES. DISCOMFORT CONTROLLED WITH NORCO Q4H PER ORDERS + X1 DILAUDID 0.2MG IV FOR INCREASED DISCOMFORT POST COUGH. NO NAUSEA/EMESIS. LUNG SOUNDS COARSE WITH DIMINISHED BASES, ENCOURAGED DEEP BREATHING + IS USE. PT OOB SBA UP TO RESTROOM THIS SHIFT, TOLERATED WELL. PT CURRENTLY RESTING IN BED WITH CALL LIGHT IN REACH.
[2020-03-12] MEDS ORDERED: LORCET 5-325 M1 EACH PO (16:20)
--- NOTE | 2020-03-12 18:10 | NUR ---
Discharge summary Patient discharged to home. Prescription for [place] given to patient. Discharge instructions given, explained and signed. Patient denied questions or concerns at discharge. Patient left unit via wheelchair escort.
== END 2020-03-12 18:00 | disposition home or self-care (01) ==
LOC: ER 15:08 → SURS 15:10 → ER 20:43 → SURS 20:43
PROVIDERS: Emergency Medicine; Family Medicine; ADMIT Surgery
DX: S22.42XA Multiple fractures of ribs, left side, initial encounter for closed fracture (principal); J44.9 Chronic obstructive pulmonary disease, unspecified; F41.9 Anxiety disorder, unspecified; N17.9 Acute kidney failure, unspecified; D72.829 Elevated white blood cell count, unspecified; N40.0 Benign prostatic hyperplasia without lower urinary tract symptoms; S00.03XA Contusion of scalp, initial encounter; I25.10 Atherosclerotic heart disease of native coronary artery without angina pectoris; R55 Syncope and collapse; E78.5 Hyperlipidemia, unspecified; I25.2 Old myocardial infarction; D73.5 Infarction of spleen; F10.20 Alcohol dependence, uncomplicated; W18.30XA Fall on same level, unspecified, initial encounter; Z86.73 Personal history of transient ischemic attack (TIA), and cerebral infarction without residual deficits; Z87.891 Personal history of nicotine dependence; Z79.02 Long term (current) use of antithrombotics/antiplatelets; Z79.82 Long term (current) use of aspirin; Z79.51 Long term (current) use of inhaled steroids; Z79.899 Other long term (current) drug therapy; Y92.009 Unspecified place in unspecified non-institutional (private) residence as the place of occurrence of the external cause
CPT/HCPCS: 36415; 70450; 71046; 71260; 74177; 80048; 80053; 83880; 84484; 85025; 93005; 93010; 94640; 94760; 96361; 96374-59; 96375; 97110; 97161; 97165; 97535; 99285-25; A9270-GY; J1170; J2405; J7030; Q9967

== ENCOUNTER 2020-03-24 08:09 | Inpatient (IN) | payer OTHER ==
[~2020-03-24] VITALS: Ht 170.2 cm; Wt 91.0 kg
[~2020-03-24 08:09] MED LIST changes: -ASPI81CH PO; -FURO20 PO; -LOVA40 PO; -TAMS.4ER PO
[2020-03-24 08:34] LABS: BASOPHILS ABSOLUTE AUTO 0.18 K/mm3 (0.00-0.23); BASOPHILS PERCENT AUTO 1 % (0-2); EOSINOPHILS ABSOLUTE AUTO 1.07 K/mm3 (0.00-0.68); EOSINOPHILS PERCENT AUTO 6 % (0-6); Hematocrit 39.2 % (37.0-53.0); Hemoglobin 12.7 g/dL (13.5-17.5); IMMATURE GRAN ABSOLUTE AUTO 0.15 K/mm3 (0.00-0.10); IMMATURE GRAN PERCENT AUTO 1 % (0-1); LYMPHOCYTES ABSOLUTE AUTO 3.15 K/mm3 (0.84-5.20); LYMPHOCYTES PERCENT AUTO 17 % (21-46); MONOCYTES ABSOLUTE AUTO 1.59 K/mm3 (0.16-1.47); MONOCYTES PERCENT AUTO 8 % (4-13); Mean Corpuscular HGB 30.3 pg (26.0-34.0); Mean Corpuscular HGB Conc 32.4 g/dL (31.5-36.5); Mean Corpuscular Volume 94 fL (80-100); Mean Platelet Volume 9.2 fL (9.1-12.4); NEUTROPHILS ABSOLUTE AUTO 12.92 K/mm3 (1.96-9.15); NEUTROPHILS PERCENT AUTO 68 % (41-73); Platelet Count 352 K/mm3 (150-400); RDW Coefficient Variation 13.1 % (11.7-14.2); RDW Standard Deviation 44.6 fL (35.1-46.3); Red Blood Cell Count 4.19 M/mm3 (4.30-5.90); White Blood Cell Count 19.06 K/mm3 (4.00-11.30)
[2020-03-24 08:35] LABS: Calcium, Ionized (POC) 1.08 mmol/L (1.10-1.46); Chloride (POC) 108 mmol/L (98-108); Creatinine (POC) 1.3 mg/dL (0.8-1.3); Glucose (ISTAT POC) 181 mg/dL (70-99); Hemoglobin (POC) 12.6 g/dL (13.5-17.5); Potassium (POC) 4.1 mmol/L (3.5-5.5); Sodium (POC) 138 mmol/L (135-148); Total CO2 (POC) 18 mmol/L (21-32)
[2020-03-24 08:57] LABS: Alanine Aminotransfer (ALT/SGP 22 U/L (12-78); Albumin, Blood 2.8 g/dL (3.4-5.0); Alk Phos 55 U/L (50-136); Anion Gap 9 mmol/L (6-16); Aspartate Aminotrans (AST/SGOT 12 U/L (12-37); Bilirubin, Total 0.7 mg/dL (0.1-1.0); Blood Urea Nitrogen 19 mg/dL (8-24); Bun/Creatinine Ratio 14.6 (12.0-20.0); CO2, Blood 20 mmol/L (21-32); Calcium, Blood 7.7 mg/dL (8.5-10.1); Chloride, Blood 111 mmol/L (98-108); Globulin, Blood 2.8 g/dL (2.2-4.0); Glomerular Filtration Rate 57 (60-); Glucose, Blood 191 mg/dL (70-99); Potassium, Blood 4.1 mmol/L (3.5-5.5); Sodium, Blood 140 mmol/L (136-145); Total Protein, Blood 5.6 g/dL (6.4-8.2); Troponin I <0.015 ng/mL (0.000-0.040)
[2020-03-24 10:41] LABS: International Normalized Ratio 1.03
[2020-03-24 11:15] LABS: PCO2 Arterial 29.8 mmHg (35-45); PO2 Arterial 72.1 mmHg (80-100); pH Blood Arterial 7.31 (7.35-7.45)
[2020-03-24 11:28] LABS: Calcium, Blood 8.1 mg/dL (8.5-10.1); Magnesium, Blood 2.1 mg/dL (1.6-2.4)
[2020-03-24 11:47] LABS: International Normalized Ratio 1.16; Prothrombin Time Results 12.3 Sec (9.7-11.5)
--- NOTE | 2020-03-24 11:58 | NUR ---
PT BROUGHT FROM ER DIRECTLY BACK TO OR#2, EMERGENT CASE.
[2020-03-24] MEDS ORDERED: DICLOFENAC SOD100 G1 TOP (12:27)
[2020-03-24] MEDS ORDERED: FLUT1DIS5 INH (12:27)
[2020-03-24] MEDS ORDERED: TAMS.4ER PO (13:03)
[2020-03-24] MEDS ORDERED: CLON.1 PO (13:04)
[2020-03-24] MEDS ORDERED: TRAM50 PO (13:04)
[2020-03-24] MEDS ORDERED: CLOP75 PO (13:05)
[2020-03-24] MEDS ORDERED: LORCET 5-325 M1 EACH PO (13:05)
[2020-03-24] MEDS ORDERED: ASPI81CH PO (13:05)
[2020-03-24] MEDS ORDERED: TIOT18 INH (13:06)
[2020-03-24] MEDS ORDERED: FURO20 PO (13:06)
[2020-03-24] MEDS ORDERED: LOVA40 PO (13:07)
[2020-03-24] MEDS ORDERED: NITR.4SL SL (13:07)
[2020-03-24] MEDS ORDERED: ALBU90OI61 INH (13:08)
[2020-03-24 14:09] LABS: PCO2 Arterial 38.7 mmHg (35-45)
[2020-03-24 14:13] LABS: pH Blood Arterial 7.23 (7.35-7.45)
[2020-03-24 14:15] LABS: BASOPHILS ABSOLUTE AUTO 0.08 K/mm3 (0.00-0.23); BASOPHILS PERCENT AUTO 0 % (0-2); EOSINOPHILS ABSOLUTE AUTO 0.09 K/mm3 (0.00-0.68); EOSINOPHILS PERCENT AUTO 0 % (0-6); Hematocrit 46.4 % (37.0-53.0); IMMATURE GRAN ABSOLUTE AUTO 0.23 K/mm3 (0.00-0.10); IMMATURE GRAN PERCENT AUTO 1 % (0-1); LYMPHOCYTES ABSOLUTE AUTO 0.72 K/mm3 (0.84-5.20); LYMPHOCYTES PERCENT AUTO 3 % (21-46); MONOCYTES ABSOLUTE AUTO 1.64 K/mm3 (0.16-1.47); MONOCYTES PERCENT AUTO 6 % (4-13); Mean Corpuscular HGB 29.8 pg (26.0-34.0); Mean Corpuscular HGB Conc 32.3 g/dL (31.5-36.5); Mean Corpuscular Volume 92 fL (80-100); Mean Platelet Volume 9.4 fL (9.1-12.4); NEUTROPHILS PERCENT AUTO 90 % (41-73); Platelet Count 198 K/mm3 (150-400); RDW Coefficient Variation 14.3 % (11.7-14.2); RDW Standard Deviation 48.2 fL (35.1-46.3); Red Blood Cell Count 5.03 M/mm3 (4.30-5.90); White Blood Cell Count 26.66 K/mm3 (4.00-11.30)
[2020-03-24 14:32] LABS: International Normalized Ratio 1.09; Prothrombin Time Results 11.6 Sec (9.7-11.5)
[2020-03-24 14:46] LABS: Anion Gap 9 mmol/L (6-16); Blood Urea Nitrogen 19 mg/dL (8-24); Bun/Creatinine Ratio 17.9 (12.0-20.0); CO2, Blood 16 mmol/L (21-32); Calcium, Blood 6.4 mg/dL (8.5-10.1); Chloride, Blood 116 mmol/L (98-108); Creatinine, Blood 1.06 mg/dL (0.60-1.20); Glomerular Filtration Rate >60 (60-); Glucose, Blood 178 mg/dL (70-99); Potassium, Blood 5.1 mmol/L (3.5-5.5); Sodium, Blood 141 mmol/L (136-145)
--- NOTE | 2020-03-24 17:43 | NUR ---
ADMIT/SHIFT SUMMARY PT ARRIVED TO ICU 4 VIA BED FROM OR AT 1340. PT ARRIVES INTUBATED AND SEDATED. VENT SETTING AC 16/ 450/40%/5. VSS AT TIME OF ARRIVAL. OG TUBE IN PLACE AND CLAMPED. PERIPHERAL IV IN PLACE WITH TXA INFUSING. RAMSAY CATH IN PLACE. PT IN SWB. SHORTLY AFTER ARRIVAL PT BECAME RESTLESS IN BED AND PROPOFOL STARTED @ 30MCG/KG/MIN. PT WITH PERIOD OF HYPOTENSION, DR. TUBBS NOTIFIED AND 1 L NS GIVEN. BP IMPROVED AT THIS TIME. BANANA BAG INFUSING AT 200/HR AND PROPOFOL INFUSING AT 20 MCG/KG/MIN. PT RESTING QUIETLY AT THIS TIME. MIDLINE ABD INCISION DRESSING SATURATED WITH CLAY RED BLOOD AND AMISH DRAIN WITH MODERATE AMOUNT OF CLAY RED OUTPUT. PTS BROTHER UPDATED VIA PHONE ON PT STATUS. WILL CONTINUE TO MONITOR AND REPORT TO INCOMING SHIFT.
--- NOTE | 2020-03-24 18:27 | NUR ---
DRESSING CHANGE/'S TO ROOM FOR MIDLINE ABD DRESSING CHANGE. ISAURO INTACT WITH MINIMAL NEW OOZING NOTED. AMISH SITE WNL. GAUZE AND TAPE APPLIED WITH TEGADERM CHG OVER AMISH DRAINE. DR. ZAVALETA TO RETURN IN MORNING FOR REASSESSMENT.
[2020-03-24 20:24] LABS: Hematocrit 30.3 % (37.0-53.0)
--- NOTE | 2020-03-24 21:06 | NUR ---
CONTACTED SURGEON DR ERICK ACOSTA CONTACTED DUE TO AMISH DRAIN OUTPUT OF 265ML SINCE 1899. ABD DRESSING CHANGED AT 1930. AT THIS TIME >50% WITH VISABLE BLEEDING UNDER MEFIX TAPE. DR ACOSTA TO PUT NEW ORDERS IN PLACE.
[2020-03-24 21:48] LABS: PCO2 Arterial 32.4 mmHg (35-45); PO2 Arterial 86.6 mmHg (80-100); pH Blood Arterial 7.32 (7.35-7.45)
[2020-03-24 22:13] LABS: International Normalized Ratio 1.09; Prothrombin Time Results 11.6 Sec (9.7-11.5)
--- NOTE | 2020-03-24 22:56 | NUR ---
ASSUMED CARE AT 1915 PT LAYING IN BED INTUBATED. VENTILATOR SETTINGS AT AC 16, TV 450, FIO2 35%, PEEP 5. PROPOFOL INFUSING AT 30MCG/KG/MIN. TXA INFUSING. AMISH DRAINING DARK RED FLUID. ABD DRESSING SATURATED AND CHANGED AT THIS TIME. RAMSAY PATENT AND DRAINING TO GRAVITY. SEE SHIFT ASSESSMENT FOR FULL ASSESSMENT.
[2020-03-24 23:39] LABS: Source, Urine Clean Catch
[2020-03-24 23:41] LABS: Bilirubin, Urine Neg (Neg); Blood, Urine 1+ (Neg); Glucose Qualitative, Urine Neg (Neg); Ketones, Urine Neg (Neg); Leukocyte Esterase, Urine Neg (Neg); Nitrite, Urine Neg (Neg); Protein, Urine 2+ (Neg); Specific Gravity, Urine 1.015 (1.003-1.022); Urobilinogen, Urine NORM (Normal)
[2020-03-24 23:52] LABS: Appearance, Urine Clear (Clear); Color, Urine Yellow (P-Yellow)
[2020-03-24 23:53] LABS: Bacteria Rare /hpf; Squamous Epithelial Cells Rare /hpf (Few); White Blood Cells, Urine Not Seen /hpf (0-5)
[2020-03-24 23:55] LABS: U Amphetamine Screen Not Detected; U Barbituate Screen Not Detected; U Benzodiazapine Screen Not Detected; U Buprenorphine Screen Not Detected; U Cannabinoids Screen Not Detected; U Cocaine Screen Not Detected; U Methadone Screen Not Detected; U Methamphetamine Screen DETECTED; U Opiates Screen Not Detected; U Oxycodone Screen Not Detected; U Phencyclidine Screen Not Detected; U Propoxyphene Screen Not Detected
[2020-03-25 03:25] LABS: BASOPHILS ABSOLUTE AUTO 0.05 K/mm3 (0.00-0.23); BASOPHILS PERCENT AUTO 0 % (0-2); EOSINOPHILS ABSOLUTE AUTO 0.37 K/mm3 (0.00-0.68); EOSINOPHILS PERCENT AUTO 3 % (0-6); Hematocrit 28.3 % (37.0-53.0); Hemoglobin 9.2 g/dL (13.5-17.5); IMMATURE GRAN ABSOLUTE AUTO 0.08 K/mm3 (0.00-0.10); IMMATURE GRAN PERCENT AUTO 1 % (0-1); LYMPHOCYTES ABSOLUTE AUTO 1.79 K/mm3 (0.84-5.20); LYMPHOCYTES PERCENT AUTO 12 % (21-46); MONOCYTES ABSOLUTE AUTO 1.48 K/mm3 (0.16-1.47); MONOCYTES PERCENT AUTO 10 % (4-13); Mean Corpuscular HGB 29.8 pg (26.0-34.0); Mean Corpuscular HGB Conc 32.5 g/dL (31.5-36.5); Mean Corpuscular Volume 92 fL (80-100); Mean Platelet Volume 9.9 fL (9.1-12.4); NEUTROPHILS PERCENT AUTO 74 % (41-73); Platelet Count 159 K/mm3 (150-400); RDW Coefficient Variation 15.4 % (11.7-14.2); RDW Standard Deviation 51.6 fL (35.1-46.3); Red Blood Cell Count 3.09 M/mm3 (4.30-5.90); White Blood Cell Count 14.47 K/mm3 (4.00-11.30)
[2020-03-25 03:39] LABS: International Normalized Ratio 1.05; Prothrombin Time Results 11.2 Sec (9.7-11.5)
[2020-03-25 03:49] LABS: Alanine Aminotransfer (ALT/SGP 20 U/L (12-78); Albumin, Blood 2.7 g/dL (3.4-5.0); Albumin/Globulin Ratio 1.4 (0.8-1.8); Alk Phos 31 U/L (50-136); Anion Gap 8 mmol/L (6-16); Aspartate Aminotrans (AST/SGOT 17 U/L (12-37); Bilirubin, Total 0.7 mg/dL (0.1-1.0); Blood Urea Nitrogen 20 mg/dL (8-24); Bun/Creatinine Ratio 16.3 (12.0-20.0); CO2, Blood 18 mmol/L (21-32); Calcium, Blood 6.5 mg/dL (8.5-10.1); Chloride, Blood 117 mmol/L (98-108); Creatinine, Blood 1.23 mg/dL (0.60-1.20); Globulin, Blood 1.9 g/dL (2.2-4.0); Glomerular Filtration Rate >60 (60-); Glucose, Blood 118 mg/dL (70-99); Magnesium, Blood 2.1 mg/dL (1.6-2.4); Phosphorus, Blood 2.6 mg/dL (2.5-4.9); Potassium, Blood 4.5 mmol/L (3.5-5.5); Sodium, Blood 143 mmol/L (136-145); Total Protein, Blood 4.6 g/dL (6.4-8.2)
--- NOTE | 2020-03-25 06:44 | NUR ---
END OF SHIFT SUMMARY PT INTUBATED WITH VENT SETTINGS AC 16, TV 450, FIO2 30%, PEEP 5. PROPOFOL INFUSING AT 35MCG/KG/MIN. LR INFUSING. FENTANYL GIVEN X6 ADJUNCT TO SEDATION. VERSED GIVEN ONCE FOR AGITATION. RAMSAY IN PLACE AND DRAINING TO GRAVITY. AMISH DRAINING DARK RED LIQUID. ABD DRESSING CHANGED TWICE THIS SHIFT. OG ON LOW INT SUCTIONING. PT DID NOT FOLLOW DIRECTIONS WELL, TRANSCRIPTION MANAGER STRANGTH'S UNEVEN WITH LEFT STRONGER THAN RIGHT BUT WHEN DIRECTED TO SQUEEZE HANDS, PT MORE COMPLIANT WITH RIGHT HAND OVER LEFT. WILL REPORT TO AM RN WHEN AVAILABLE.
--- NOTE | 2020-03-25 09:49 | NUR ---
CARE ASSUMED 0700 PT INTUBATED AND SEDATED. PT CURRENTLY ON PROPOFOL @ 35 MCG/KG/MIN. AC 16/450/30%/5, SPO2 97-100%. SEDATION VACATION PERFORMED THIS MORNING AND PT TOLERATED WELL. PT ABLE TO FOLLOW COMMANDS, ANSWER QUESTIONS BY NODDING HEAD YES/NO, AND ABLE TO SQUEEZE HANDS BILATERALLY/ MOVE EXTREM'S. PT STATES BEING IN PN AND TREATED WITH FENTANYL 50 MG. PTS PN IMPROVED AND PT SLEEPING QUIETLY AFTER. PTS ABD DRESSING C/D/I AND AMISH DRAINING RED CLAY BLOOD. VSS. DR. ACOSTA TO ROOM AND STATES REASSESSING H&H AT 1000 TODAY AND POSSIBLY STARTING LOVENOX DEPENDING ON RESULTS. DR. TUBBS IN TO SEE PT AND WOULD LIKE TO EXTUBATE TODAY DEPENDING ON HOW PT TOLERATES BEING PLACED ON PRESSURE SUPPORT OF 7/5. RT ROSS TO ROOM AND PT SWITCHED TO PS AT THIS TIME. PROPOFOL INCREASED TO 40 MCG/KG/MIN AND DR. TUBBS ORDERED PRECEDEX FOR SEDATION ADJUNCT. PT TOLERATING WELL. WILL CONTINUE TO MONITOR.
[2020-03-25 10:27] LABS: Hematocrit 23.8 % (37.0-53.0)
[2020-03-25 16:48] LABS: Hematocrit 25.3 % (37.0-53.0); Hemoglobin 8.4 g/dL (13.5-17.5); Mean Corpuscular HGB 30.3 pg (26.0-34.0); Mean Corpuscular HGB Conc 33.2 g/dL (31.5-36.5); Mean Corpuscular Volume 91 fL (80-100); Mean Platelet Volume 9.7 fL (9.1-12.4); Platelet Count 168 K/mm3 (150-400); RDW Coefficient Variation 15.4 % (11.7-14.2); RDW Standard Deviation 51.8 fL (35.1-46.3); Red Blood Cell Count 2.77 M/mm3 (4.30-5.90); White Blood Cell Count 15.31 K/mm3 (4.00-11.30)
[2020-03-25 17:04] LABS: Anion Gap 5 mmol/L (6-16); Blood Urea Nitrogen 14 mg/dL (8-24); Bun/Creatinine Ratio 14.8 (12.0-20.0); CO2, Blood 23 mmol/L (21-32); Calcium, Blood 7.1 mg/dL (8.5-10.1); Chloride, Blood 115 mmol/L (98-108); Creatinine, Blood 0.95 mg/dL (0.60-1.20); Glomerular Filtration Rate >60 (60-); Glucose, Blood 128 mg/dL (70-99); Sodium, Blood 143 mmol/L (136-145)
--- NOTE | 2020-03-25 18:11 | NUR ---
SHIFT SUMMARY PT INTUBATED AND SEDATED, CURRENTLY ON PROPOFOL 40 MCG/KG/MIN. PT CURRENTLY ON PS 7/5, FIO2 30. SPO2 HAS BEEN BETWEEN 90-100% T/O SHIFT. PT TOLERATING PS WELL. PT ABLE TO FOLLOW COMMANDS/SQUEEZE HANDS. MIDLINE ABD DRESSING C/D/I. AMISH DRAINING MILD CLAY RED BLOOD. PTS BROTHER IN TO SEE PT, UPDATE PROVIDED AND ALL QUESTIONS ANSWERED. RAMSAY CATH IN PLACE, PATENT/INTACT. INDER STILL SPOKE TO DR. TUBBS IN REGARDS TO KEEPING PT ON PRESSURE SUPPORT UNTIL TOMORROW MORNING IF HE CONTINUES TO TOLERATE IT WELL. PLAN TO EXTUBATE TOMORROW. VSS. WILL CONTINUE TO MONITOR AND REPORT TO ONCOMING SHIFT.
--- NOTE | 2020-03-25 20:42 | NUR ---
ASSUMED CARE AT 1900 PT LAYING IN BED AND INTUBATED. VENT SETTINGS AT SPONTANIOUS WITH TV 450, FIO2 25%. PEEP 5. PROPOFOL INFUSING AT 40MCG/KG/MIN. LR INFUSING. OG AT LIS. RAMSAY PATENT AND DRAINING TO GRAVITY. WHEEZES NOTED DURING ASSESSMENT BUT CLEARED WITH SUCTIONING. PT FOLLOWING DIRECTIONS. SEE SHIFT ASSESSMENT FOR FULL ASSESSMENT.
[2020-03-26 03:28] LABS: BASOPHILS ABSOLUTE AUTO 0.16 K/mm3 (0.00-0.23); BASOPHILS PERCENT AUTO 1 % (0-2); EOSINOPHILS ABSOLUTE AUTO 0.96 K/mm3 (0.00-0.68); EOSINOPHILS PERCENT AUTO 5 % (0-6); Hematocrit 22.6 % (37.0-53.0); Hemoglobin 7.4 g/dL (13.5-17.5); IMMATURE GRAN ABSOLUTE AUTO 0.12 K/mm3 (0.00-0.10); IMMATURE GRAN PERCENT AUTO 1 % (0-1); LYMPHOCYTES ABSOLUTE AUTO 1.94 K/mm3 (0.84-5.20); LYMPHOCYTES PERCENT AUTO 11 % (21-46); MONOCYTES ABSOLUTE AUTO 1.75 K/mm3 (0.16-1.47); MONOCYTES PERCENT AUTO 10 % (4-13); Mean Corpuscular HGB 30.5 pg (26.0-34.0); Mean Corpuscular HGB Conc 32.7 g/dL (31.5-36.5); Mean Corpuscular Volume 93 fL (80-100); NEUTROPHILS ABSOLUTE AUTO 12.69 K/mm3 (1.96-9.15); NEUTROPHILS PERCENT AUTO 72 % (41-73); NRBC ABSOLUTE 0.03 K/mm3 (0.00-0.02); NRBC Auto 0.2 /100 WBC (0.0-0.2); RDW Coefficient Variation 15.5 % (11.7-14.2); RDW Standard Deviation 52.6 fL (35.1-46.3); Red Blood Cell Count 2.43 M/mm3 (4.30-5.90); White Blood Cell Count 17.62 K/mm3 (4.00-11.30)
[2020-03-26 03:34] LABS: Albumin, Blood 2.4 g/dL (3.4-5.0); Anion Gap 6 mmol/L (6-16); Blood Urea Nitrogen 11 mg/dL (8-24); CO2, Blood 21 mmol/L (21-32); Calcium, Blood 7.1 mg/dL (8.5-10.1); Chloride, Blood 116 mmol/L (98-108); Creatinine, Blood 0.92 mg/dL (0.60-1.20); Glomerular Filtration Rate >60 (60-); Glucose, Blood 115 mg/dL (70-99); Phosphorus, Blood 1.4 mg/dL (2.5-4.9); Potassium, Blood 3.8 mmol/L (3.5-5.5); Sodium, Blood 143 mmol/L (136-145)
[2020-03-26 03:41] LABS: Mean Platelet Volume 9.9 fL (9.1-12.4); Platelet Count 165 K/mm3 (150-400)
--- NOTE | 2020-03-26 05:49 | NUR ---
END OF SHIFT SUMMARY PT INTUBATED WITH VENT SETTINGS AT SPONTANIOUS, TV 450, FIO2 25%, PEEP 5. PROPOFOL INFUSING AT 45MCG/KG/MIN. LR INFUSING. OG ON LOW INT SUCTIONING. RAMSAY PATENT AND DRAINING TO GRAVITY. AMISH OUTPUT OF 70ML OF RED, WATERY FLUID. OCCATIONAL WHEEZING AND CRACKLES HEARD AND CLEARED WITH SUCTIONING. PT FOLLOWING COMMANDS. FENTYNOL GIVEN 5X ADJUNCT WITH SEDATION. WILL REPORT TO AM RN WHEN AVAILABLE.
--- NOTE | 2020-03-26 06:43 | NUR ---
CALLED DR GRAY CASTELLANO NOTIFIED VIA PHONE CALL OF PHOSPHORUS OF 1.[address] CASTELLANO TO INPUT NEW ORDERS.
--- NOTE | 2020-03-26 07:45 | NUR ---
ASSUMED CARE BEDSIDE REPORT RECIEVED. PT IS INTUBATED AND SEDATED. PT OPENS EYES TO VOICE AND IS ABLE TO FOLLOW SIMPLE COMMANDS. PT VENT SETTINGS PS 7/5, FIO2 25%. PT SEDATED WITH PROPOFOL AT 45 MCG/KG/MIN. LR INFUSING AT 150 ML/HR. OGT IN PLACE WITH MINIMAL BROWN OUTPUT NOTED. RAMSAY IN PLACE WITH CLEAR YELLOW OUTPUT NOTED. MIDLINE ABD INCISION WITH DRESSING C/D/I. AMISH DRAIN IN PLACE RED OUTPUT NOTED. SBW RESTRAINTS IN PLACE. WILL CONTINUE TO MONITOR.
--- NOTE | 2020-03-26 08:49 | NUR ---
DR MADELIN TUBBS, DR BANEGAS, AND DR ACOSTA HAVE COME TO SEE PT THIS AM. PLANS TO EXTUBATED PT THIS AM. WILL CONTINUE TO MONITOR.
--- NOTE | 2020-03-26 09:27 | NUR ---
EXTUBATION RT ROSS AT BEDSIDE FOR EXTUBATION. PT EXTUBATED AT 0920. OGT REMOVED. PT PLACED ON 4L O2 NC. PT ATTEMPTING TO SPEAK, PT NODS HEAD APPROPRIATELY. WILL CONTINUE TO MONITOR.
--- NOTE | 2020-03-26 09:41 | NUR ---
PT HEAVYILY ORAL AND ETT SX, PT FOLLOWING DIRECTIONS WELL, PT EXTUBATED TO 4L NC TOLERATING WELL WITH NO DISTERSS, COUGHING UP MUCUS FAIRLY WELL, WILL CONTINUE TO MONITOR. TIME OF EXTUBATION 0920
[2020-03-26 16:32] LABS: Hematocrit 21.7 % (37.0-53.0); Hemoglobin 7.1 g/dL (13.5-17.5)
--- NOTE | 2020-03-26 17:20 | NUR ---
SHIFT SUMMARY NO ACUTE CHANGES THIS AFTERNOON. PT HAS REMAINED STABLE SINCE EXTUBATION THIS AM. PT HAS REMAINED ALERT AND ORIENTED WHEN AWAKE. PT ON 4L O2 NC. VITAL SIGNS STABLE. LR INFUSING AT 50 ML/HR. RAMSAY IN PLACE WITH GOOD AMOUNT OF GREEN TINGED URINE OUTPUT. MIDLINE ABD INCISION JORJE WITH NO OOZING OR REDDNESS NOTED, ISAURO INTACT. AMISH DRAIN REMAINS IN PLACE WITH SMALL AMOUNT OF SEROSANGUINEOUS OUTPUT NOTED. PT HAS COMPLAINED OF 10/10 PAIN IN ABD AND BACK THROUGHOUT THE DAY SINCE EXTUBATION. PT MED WITH FENTANYL PER EMAR. NO FAMILY IN TO SEE PT TODAY. WILL CONTINUE TO MONITOR AND REPORT OFF TO ONCOMING RN.
--- NOTE | 2020-03-26 19:15 | NUR ---
ASSUMED CARE OF PT, BEDSIDE REPORT RECEIVED. PT IS ALERT WITH STRONG VOICE QUALITY NOTED, HE IS SPEAKING IN FULL SENTENCES, RATES PAIN 10/10 AT THIS TIME CODING ADVISOR IS ORDERED AND AWAITING ARRIVAL OF MEDICATION FROM PHARMACY, WILL SET UP ON ARRIVAL AND INSTRUCT PT ON USE. LUNGS ARE CLEAR BILAT WITH DIM BASES AT THIS TIME, SATS MAINTAINING MID 90S WITH OXYGEN VIA NASAL CANNULA AT 4 L/MIN, SKIN IS PWD, RESP RATE LOW 20S AND SHALLOW, PT STATES SECONDARY TO ABD AND RIB PAIN. HRR, SINUS ON MONITOR, RATE LOW 80S, PRESSURE IS MAINTAINING, SKIN IS PWD, EDEMA IS NOTED, SEE SHIFT ASSESSMENT. ABD DISTENTION CONTINUES, BOWEL TONES IMPROVED TO NORMOACTIVE AT THIS TIME, SOFT BUT TENDER TO PALP, MIDLINE INC RIVET THROWER IS NOTED WELL AMISH DRAIN. RAMSAY CATH IN PLACE DRAINING CLEAR YELLOW URINE TO GRAVITY.
[2020-03-27 03:46] LABS: BASOPHILS ABSOLUTE AUTO 0.18 K/mm3 (0.00-0.23); BASOPHILS PERCENT AUTO 1 % (0-2); EOSINOPHILS ABSOLUTE AUTO 1.51 K/mm3 (0.00-0.68); EOSINOPHILS PERCENT AUTO 7 % (0-6); Hematocrit 21.6 % (37.0-53.0); Hemoglobin 7.1 g/dL (13.5-17.5); IMMATURE GRAN ABSOLUTE AUTO 0.12 K/mm3 (0.00-0.10); IMMATURE GRAN PERCENT AUTO 1 % (0-1); LYMPHOCYTES ABSOLUTE AUTO 1.85 K/mm3 (0.84-5.20); LYMPHOCYTES PERCENT AUTO 8 % (21-46); MONOCYTES ABSOLUTE AUTO 1.79 K/mm3 (0.16-1.47); MONOCYTES PERCENT AUTO 8 % (4-13); Mean Corpuscular HGB 30.2 pg (26.0-34.0); Mean Corpuscular HGB Conc 32.9 g/dL (31.5-36.5); Mean Corpuscular Volume 92 fL (80-100); Mean Platelet Volume 9.6 fL (9.1-12.4); NEUTROPHILS ABSOLUTE AUTO 17.03 K/mm3 (1.96-9.15); NEUTROPHILS PERCENT AUTO 76 % (41-73); NRBC ABSOLUTE 0.03 K/mm3 (0.00-0.02); NRBC Auto 0.1 /100 WBC (0.0-0.2); Platelet Count 238 K/mm3 (150-400); RDW Coefficient Variation 14.4 % (11.7-14.2); RDW Standard Deviation 48.3 fL (35.1-46.3); Red Blood Cell Count 2.35 M/mm3 (4.30-5.90); White Blood Cell Count 22.48 K/mm3 (4.00-11.30)
[2020-03-27 04:04] LABS: Albumin, Blood 2.2 g/dL (3.4-5.0); Anion Gap 6 mmol/L (6-16); Blood Urea Nitrogen 9 mg/dL (8-24); CO2, Blood 24 mmol/L (21-32); Calcium, Blood 7.4 mg/dL (8.5-10.1); Chloride, Blood 112 mmol/L (98-108); Creatinine, Blood 0.82 mg/dL (0.60-1.20); Glomerular Filtration Rate >60 (60-); Glucose, Blood 113 mg/dL (70-99); Potassium, Blood 3.6 mmol/L (3.5-5.5); Sodium, Blood 142 mmol/L (136-145)
--- NOTE | 2020-03-27 06:40 | NUR ---
PT RESTS QUIETLY THROUGHOUT SHIFT, STATES THAT HE FEELS LIKE HE HAS BEEN GETTING GOOD AMOUNTS OF SLEEP. CONTINUES TO REMAIN AWARE THAT HE IS IN THE HOSPITAL IN [place] AND CAN STATE THE YEAR AND MONTH, HE HAS BEEN USING CALL LIGHT APPROPRIATELY THIS SHIFT TO MAKE NEEDS KNOWN, PAIN CONTROL IS IMPROVED WITH HITTING COACH USE HOWEVER PT HAS HAD DIFFICULTY WITH BEING ABLE TO TELL IF HE HAS SUCCESSFULLY PUSHED HITTING COACH BOLUS BUTTON SECONDARY TO POOR FEELING IN HIS FINGERTIPS. SATS CONTINUE MAINTAINING WITH OXYGEN VIA NASAL CANNULA, TITRATED DOWN THROUGHOUT SHIFT TO 2 L/MIN THIS AM, RESP RATE REMAINS TEENS TO LOW 20S, NO VISIBLE INCREASED WORK OF BREATHING, STRONG VOICE QUALITY CONTINUES AND PT IS SPEAKING IN FULL SENTENCES, DENIES DYSPNEA/SOB OTHER THAN RELATED TO INCREASES IN PAIN. PRESSURES MAINTAINING, FULL PULSES CONTINUE, GOOD URINE OUTPUT. ABD REMAINS DISTENDED, BOWEL TONES ARE IMPROVED, MIDLINE INCISIONS WITH ISAURO JORJE, AMISH DRAIN OUTPUT OF 20 ML THIS SHIFT COLOR IMPROVED TO SEROSANGUINOUS.
--- NOTE | 2020-03-27 08:34 | NUR ---
03/27/20 0834 Demarcus Jerome SEE ANESTESIA RECORD FOR BLOOD. XRAY TAKEN POST OPERATIVELY IN OR.
--- NOTE | 2020-03-27 08:47 | NUR ---
ASSUMED CARE OF PT AT 0700. REPORT FROM KALIN LOVING. PT WAKES c VERBAL STIMULI. FOLLOWS SIMPLE COMMANDS. PT c GENERALIZED WEAKNESS, HX OF CVA. ABLE TO MOVE ALL EXTREMITIES. A&OX 2. DOES NOT RECALL EVENT THAT LED TO HOSPITALIZATION. PT SPEAKING IN FULL SENTANCES. STRONG VOICE. PRODUCTIVE COUGH c JOHNSON SPUTUM. USING YAN[place]UR INDEPENDENTLY. LUNGS c WHEEZES ON RIGHT, DIMINISHED IN BASES. PT P/W/D. 2L O2 VIA NC, O2 SATS >92%. SR ON MONITOR, RATE 70-80'S. ABD c INCISION MIDLINE, JORJE, ISAURO INTACT, NO DRAINAGE OR REDNESS NOTED. AMISH DRAIN TO LEFT ABD. SANGINOUS FLUID IN DRAIN. ABD ROUND, SOFT, TENDER. BT X 4. PT REPORTS PASSING GAS. DR ACOSTA ROUNDED, OK'D TO PERFORM BEDSIDE SWALLOW AND ADVANCE DIET TO CLEAR LIQUIDS. PENDING PT/OT EVAL AND ATTEMPT TO GET PT OUT OF BED THIS SHIFT. DILAUDID AIRCRAFT MECHANIC c 0.2 MG DEMAND BOLUS. WILL CONTINUE TO MONITOR.
--- NOTE | 2020-03-27 11:15 | NUR ---
PT TRANSFERRED TO SURGICAL FLOOR. REPORT TO VIOLETTA LOVING. PT WORKED c PT/OT PRIOR TO TRANSFER. ABLE TO DANGLE AT BEDSIDE. PT REPORTS BETTER RELIEF FROM DILAUDID PRODUCT SUPPORT CONSULTANT THAN THIS MORNING. DENIES PAIN OTHER THAN c MOVEMENT OR CARE. BEDSIDE SWALLOW EVAL COMPLETED, PT HAD NO DIFFICULTIES SWALLOWING. CLEAR LIQUID DIET ORDERED. ALL BELONGINGS c PT. PT TRANSFERRED c DILAUDID PRODUCT SUPPORT CONSULTANT.
--- NOTE | 2020-03-27 11:28 | NUR ---
PT ARRIVED TO UNIT FROM ICU. A&OX3. ORIENTED TO USE OF CALL LIGHT. PROVIDED SUCTION FOR PT COMFORT. RESTING IN BED. DENIES ANY NEEDS AT THIS TIME.
--- NOTE | 2020-03-27 13:16 | NUR ---
placed tele and verified w/tech sr @ 77
--- NOTE | 2020-03-27 14:18 | NUR ---
PT REPORTED BLACK SPOTS IN HIS VISION DENIES DIZZINESS OR LIGHTHEADEDNESS. BP 146/77, PULSE 85, RR 28, O2 90%/2L. NOTIFIED DR BANEGAS.
--- NOTE | 2020-03-27 16:32 | NUR ---
pt to imaging
--- NOTE | 2020-03-27 17:03 | NUR ---
SUMMARY NO ACUTE CHANGES SINCE ARRIVING TO UNIT FROM ICU. PT ORIENTED BUT SLOW TO RESPOND AT TIMES. REPORTS HAS DIFFICULTY GRASPING ITEMS, INCLUDING WATER. 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 PT SUCTIONS INDEPENDENTLY PRN; THICK JOHNSON SPUTUM. PT REPORTED SEEING BLACK SPOTS IN FRONT OF EYES. REPORTED TO DR BANEGAS, ORDERS OBTAINED FOR HEAD CT. UNABLE TO COMPLETE MRI ORIGINALLY ORDERED. PT STATED HAD EYE IMPLANTS IN "LAST COUPLE OF MONTHS" BUT COULD NOT STATE WHEN. PT RESTING W/LIGHTS OFF AT THIS TIME. IVS INFUSING TO NEW POWERGLIDE TO LUE.
--- NOTE | 2020-03-28 04:04 | NUR ---
SHIFT SUMMARY NO ACUTE CHANGES THIS SHIFT. APPEARS TO HAVE RESTED COMFORTABLY T/O SHIFT. INCISION TO MIDLINE W/ISAURO INTACT JORJE, NO DRAINAGE NOTED. AMISH TO LLQ IN PLACE, DRESSING CDI, 20ML SS OUTPUT. SPO2 ABOVE 94% ON 2L NC; DENIES SOB. PAIN MANAGED WITH RN RADIATION ONCOLOGY, PT DEMONSTRATED APPROPRIATE USE. RAMSAY PATENT AND DRAINING CL YELLOW URINE. WILL REMOVE PRIOR TO SHIFT CHANGE PER ORDERS. IVF INFUSING. PT DOMINIC SMALL AMOUNTS CL. PLAN TO WORK WITH THERAPY TODAY. WILL CONT TO MONITOR AND GIVE REPORT TO ONCOMING RN.
[2020-03-28 05:47] LABS: BASOPHILS ABSOLUTE AUTO 0.11 K/mm3 (0.00-0.23); BASOPHILS PERCENT AUTO 1 % (0-2); EOSINOPHILS ABSOLUTE AUTO 1.37 K/mm3 (0.00-0.68); EOSINOPHILS PERCENT AUTO 8 % (0-6); Hemoglobin 7.6 g/dL (13.5-17.5); IMMATURE GRAN ABSOLUTE AUTO 0.08 K/mm3 (0.00-0.10); IMMATURE GRAN PERCENT AUTO 1 % (0-1); LYMPHOCYTES ABSOLUTE AUTO 1.56 K/mm3 (0.84-5.20); LYMPHOCYTES PERCENT AUTO 9 % (21-46); MONOCYTES ABSOLUTE AUTO 1.59 K/mm3 (0.16-1.47); MONOCYTES PERCENT AUTO 9 % (4-13); Mean Corpuscular Volume 91 fL (80-100); Mean Platelet Volume 9.3 fL (9.1-12.4); NEUTROPHILS ABSOLUTE AUTO 12.19 K/mm3 (1.96-9.15); NEUTROPHILS PERCENT AUTO 72 % (41-73); NRBC ABSOLUTE 0.06 K/mm3 (0.00-0.02); NRBC Auto 0.4 /100 WBC (0.0-0.2); Platelet Count 360 K/mm3 (150-400); RDW Coefficient Variation 13.4 % (11.7-14.2); RDW Standard Deviation 44.2 fL (35.1-46.3); Red Blood Cell Count 2.53 M/mm3 (4.30-5.90)
[2020-03-28 06:12] LABS: Albumin, Blood 2.3 g/dL (3.4-5.0); Anion Gap 7 mmol/L (6-16); Blood Urea Nitrogen 11 mg/dL (8-24); Bun/Creatinine Ratio 13.6 (12.0-20.0); CO2, Blood 24 mmol/L (21-32); Calcium, Blood 7.9 mg/dL (8.5-10.1); Chloride, Blood 108 mmol/L (98-108); Creatinine, Blood 0.81 mg/dL (0.60-1.20); Glomerular Filtration Rate >60 (60-); Glucose, Blood 114 mg/dL (70-99); Potassium, Blood 3.6 mmol/L (3.5-5.5); Sodium, Blood 139 mmol/L (136-145)
[2020-03-28 11:57] LABS: Amylase, Body Fluid 15 U/L
--- NOTE | 2020-03-28 16:56 | NUR ---
SUMMARY NO ACUTE CHANGES T/O SHIFT. PT WORKED WITH THERAPY AND WAS ABLE TO STAND AT BEDSIDE BRIEFLY. ABLE TO FEED SELF BREAKFAST AND LUNCH. ELECTRONIC SCALE ASSEMBLER AND TESTER DC'D AND PT STARTED ON PO PAIN MEDS WHICH SEEMS EFFECTIVE. REPOSITIONED T/O SHIFT. CALL LIGHT AND SUCTION WITHIN REACH.
--- NOTE | 2020-03-28 17:10 | NUR ---
TURNED OVER CARE TO KEENAN Arteaga RN
--- NOTE | 2020-03-28 17:15 | NUR ---
ASSUMED PT CARE AT THIS TIME
--- NOTE | 2020-03-28 19:01 | NUR ---
NO CHANGE SINCE RECIEVED REPORT, PT A/O. GIVEN PAIN MEDS X1
[2020-03-28 19:35] LABS: U Amphetamine Screen Not Detected; U Barbituate Screen Not Detected; U Benzodiazapine Screen Not Detected; U Buprenorphine Screen Not Detected; U Cannabinoids Screen Not Detected; U Cocaine Screen Not Detected; U Methadone Screen Not Detected; U Methamphetamine Screen Not Detected; U Opiates Screen DETECTED; U Oxycodone Screen Not Detected; U Phencyclidine Screen Not Detected; U Propoxyphene Screen Not Detected
[2020-03-29 05:47] LABS: BASOPHILS ABSOLUTE AUTO 0.13 K/mm3 (0.00-0.23); BASOPHILS PERCENT AUTO 1 % (0-2); EOSINOPHILS ABSOLUTE AUTO 2.25 K/mm3 (0.00-0.68); EOSINOPHILS PERCENT AUTO 16 % (0-6); Hematocrit 22.1 % (37.0-53.0); Hemoglobin 7.2 g/dL (13.5-17.5); IMMATURE GRAN ABSOLUTE AUTO 0.08 K/mm3 (0.00-0.10); IMMATURE GRAN PERCENT AUTO 1 % (0-1); LYMPHOCYTES ABSOLUTE AUTO 1.79 K/mm3 (0.84-5.20); LYMPHOCYTES PERCENT AUTO 13 % (21-46); MONOCYTES ABSOLUTE AUTO 1.65 K/mm3 (0.16-1.47); MONOCYTES PERCENT AUTO 12 % (4-13); Mean Corpuscular HGB 29.4 pg (26.0-34.0); Mean Corpuscular HGB Conc 32.6 g/dL (31.5-36.5); Mean Corpuscular Volume 90 fL (80-100); Mean Platelet Volume 9.5 fL (9.1-12.4); NEUTROPHILS ABSOLUTE AUTO 8.06 K/mm3 (1.96-9.15); NEUTROPHILS PERCENT AUTO 58 % (41-73); NRBC ABSOLUTE 0.08 K/mm3 (0.00-0.02); NRBC Auto 0.6 /100 WBC (0.0-0.2); Platelet Count 424 K/mm3 (150-400); RDW Coefficient Variation 13.3 % (11.7-14.2); RDW Standard Deviation 44.2 fL (35.1-46.3); Red Blood Cell Count 2.45 M/mm3 (4.30-5.90); White Blood Cell Count 13.96 K/mm3 (4.00-11.30)
--- NOTE | 2020-03-29 06:04 | NUR ---
shift summary: pt remained a/o x 4, pleasant/cooperative, vss, no acute changes. pt tolerated PO intake with no n/v. pt rates pain at 7-10/10, provided with analgesia per mar, encouraged to performed ROM activities to wrist/elbows/ankles/knees as he is able. pt able to assist with rolls and repositioning q2 when encouraged. This RN discussed with pt the importance of performing his own ROM exercises while in bed. Midline incision remained c/d/i with dried shadowing noted on start of shift assessment remaining the same. AMISH drain patent/draining serosanguinous liquid.
[2020-03-29 06:08] LABS: Anion Gap 6 mmol/L (6-16); Blood Urea Nitrogen 12 mg/dL (8-24); Bun/Creatinine Ratio 12.5 (12.0-20.0); CO2, Blood 25 mmol/L (21-32); Chloride, Blood 109 mmol/L (98-108); Creatinine, Blood 0.96 mg/dL (0.60-1.20); Glomerular Filtration Rate >60 (60-); Glucose, Blood 111 mg/dL (70-99); Potassium, Blood 3.6 mmol/L (3.5-5.5); Sodium, Blood 140 mmol/L (136-145)
--- NOTE | 2020-03-29 17:34 | NUR ---
SUMMARY PT STATES PAIN IS ADEQUATELY CONTROLLED WITH PO PAIN MEDS. PT IS HOPING TO DISCHARGE TO SNF IN THE AM. PT OOB WITH PT/OT BUT HAS DECLINED TO SIT UP IN CHAIR. DOMINIC PO FOODS AND FLUIDS WITHOUT NAUSEA. AMISH WITH SEROSANGUINOUS OUTPUT. ABD ISAURO INTACT
--- NOTE | 2020-03-30 04:08 | NUR ---
SHIFT SUMMARY POD#6. AAOX4. DISCOMFORT CONTROLLED WITH 2 NORCO X1 THIS SHIFT. NO NAUSEA/EMESIS. ABD INCISION WITH STAPES C/D/I. AMISH SECURE WITH SMALL AMOUNT SS OUT, WILL SEND SAMPLE THIS AM PER ORDERS. BTX4, PT REPORTING SMALL AMOUNTS OF FLATUS, NO BM THIS SHIFT. PT REPOSITIONS SELF WELL IN BED, CONTINUE TO ENCOURAGE, MEPILEX ON COCCYX FOR REDNESS, NOT CHANGED THIS SHIFT. PT RESTING WELL THIS AM WITH CALL LIGHT IN REACH.
[2020-03-30 06:09] LABS: Amylase, Body Fluid 13 U/L
--- NOTE | 2020-03-30 12:31 | NUR ---
DR. ACOSTA CAME IN AT THIS TIME AND TOOK OUT THE AMISH DRAIN. NO COMPLICATIONS AND BANDAID IS OVER THE SITE. WILL CONTINUE TO MONITOR.
--- NOTE | 2020-03-30 14:56 | NUR ---
GAVE NURSE AT [facility] REPORT.
== END 2020-03-30 14:54 | DRG 799 ==
LOC: ER 08:09 → ICUW 11:50 → PCU 11:50 → ICUE 11:50 → SURS 11:50 → ICUE 12:32 → ICUW 03-26 12:33 → SURS 03-27 11:20
PROVIDERS: Emergency Medicine; Internal Medicine; Internal Medicine Critical Care Medicine; ADMIT Surgery
PROC: 5A1935Z Respiratory Ventilation, Less than 24 Consecutive Hours (ICD-10-PCS; 2020-03-24)
PROC: 07TP0ZZ Resection of Spleen, Open Approach (ICD-10-PCS; principal; 2020-03-24 12:00)
PROC: 0BH17EZ Insertion of Endotracheal Airway into Trachea, Via Natural or Artificial Opening (ICD-10-PCS; 2020-03-24 12:00)
PROC: 30233N1 Transfusion of Nonautologous Red Blood Cells into Peripheral Vein, Percutaneous Approach (ICD-10-PCS; 2020-03-26)
DX: S36.032A Major laceration of spleen, initial encounter (principal); G92 Toxic encephalopathy; T79.4XXA Traumatic shock, initial encounter; D62 Acute posthemorrhagic anemia; N17.9 Acute kidney failure, unspecified; W19.XXXA Unspecified fall, initial encounter; J44.9 Chronic obstructive pulmonary disease, unspecified; I25.10 Atherosclerotic heart disease of native coronary artery without angina pectoris; I10 Essential (primary) hypertension; F10.20 Alcohol dependence, uncomplicated; E83.51 Hypocalcemia; I95.9 Hypotension, unspecified; Z86.73 Personal history of transient ischemic attack (TIA), and cerebral infarction without residual deficits; Z87.891 Personal history of nicotine dependence
CPT/HCPCS: 31720; 36415; 36430; 36600; 70450; 71045; 71260; 74018; 74177; 80047; 80048; 80053; 80069; 81001; 82150; 82310; 82330; 82803; 82947; 83605; 83690; 83735; 84100; 84484; 85014; 85018; 85025; 85027; 85384; 85610; 85730; 86850; 86900; 86901; 86923; 87040; 88305; 90670; 90707; 93005; 93010; 93306; 93880; 94002; 94003; 94640; 94762; 96361; 96365; 96366; 96368; 96375; 96376; 97110; 97116; 97162; 97167; 97530; 97535; 99285-25; A9270-GY; C9113; G0480; J0330; J0610; J0690; J1170; J1644; J2250; J2370; J2405; J2543; J2704; J3010; J3411; J3475; J7030; J7040; J7042; J7060; J7120; P9016; P9035; P9046; P9059; Q9967; U0002

== ENCOUNTER 2020-05-04 11:53 | Observation (INO) | payer OTHER ==
[~2020-05-04] VITALS: Ht 170.2 cm; Wt 83.9 kg
[~2020-05-04 11:53] MED LIST changes: +Aspirin EC81 MG PO; +DICLOFENAC SOD100 G1 TOP; +FURO20 PO; +LORCET 5-325 M1 EACH PO; +LOVA40 PO; +TAMS.4ER PO; +TRAM50 PO
[2020-05-04 12:36] LABS: BASOPHILS ABSOLUTE AUTO 0.15 K/mm3 (0.00-0.23); BASOPHILS PERCENT AUTO 1 % (0-2); EOSINOPHILS ABSOLUTE AUTO 0.47 K/mm3 (0.00-0.68); EOSINOPHILS PERCENT AUTO 4 % (0-6); Hematocrit 41.8 % (37.0-53.0); Hemoglobin 12.8 g/dL (13.5-17.5); IMMATURE GRAN ABSOLUTE AUTO 0.03 K/mm3 (0.00-0.10); IMMATURE GRAN PERCENT AUTO 0 % (0-1); LYMPHOCYTES ABSOLUTE AUTO 2.52 K/mm3 (0.84-5.20); LYMPHOCYTES PERCENT AUTO 21 % (21-46); MONOCYTES ABSOLUTE AUTO 1.18 K/mm3 (0.16-1.47); MONOCYTES PERCENT AUTO 10 % (4-13); Mean Corpuscular HGB 27.7 pg (26.0-34.0); Mean Corpuscular HGB Conc 30.6 g/dL (31.5-36.5); Mean Corpuscular Volume 91 fL (80-100); Mean Platelet Volume 9.3 fL (9.1-12.4); NEUTROPHILS ABSOLUTE AUTO 7.42 K/mm3 (1.96-9.15); NEUTROPHILS PERCENT AUTO 63 % (41-73); Platelet Count 540 K/mm3 (150-400); RDW Coefficient Variation 14.4 % (11.7-14.2); RDW Standard Deviation 47.9 fL (35.1-46.3); Red Blood Cell Count 4.62 M/mm3 (4.30-5.90); White Blood Cell Count 11.77 K/mm3 (4.00-11.30)
[2020-05-04 13:02] LABS: Alanine Aminotransfer (ALT/SGP 22 U/L (12-78); Albumin, Blood 3.4 g/dL (3.4-5.0); Albumin/Globulin Ratio 0.9 (0.8-1.8); Alk Phos 70 U/L (50-136); Anion Gap 7 mmol/L (6-16); Aspartate Aminotrans (AST/SGOT 12 U/L (12-37); Bilirubin, Total 0.3 mg/dL (0.1-1.0); Blood Urea Nitrogen 20 mg/dL (8-24); Bun/Creatinine Ratio 20.1 (12.0-20.0); CO2, Blood 25 mmol/L (21-32); Calcium, Blood 8.9 mg/dL (8.5-10.1); Chloride, Blood 108 mmol/L (98-108); Globulin, Blood 3.6 g/dL (2.2-4.0); Glomerular Filtration Rate >60 (60-); Glucose, Blood 130 mg/dL (70-99); Potassium, Blood 4.2 mmol/L (3.5-5.5); Sodium, Blood 140 mmol/L (136-145)
[2020-05-04] MEDS ORDERED: GABA100 PO (18:52)
[2020-05-04 19:39] LABS: U Amphetamine Screen Not Detected; U Barbituate Screen Not Detected; U Benzodiazapine Screen Not Detected; U Buprenorphine Screen Not Detected; U Cannabinoids Screen Not Detected; U Cocaine Screen Not Detected; U Methadone Screen Not Detected; U Methamphetamine Screen Not Detected; U Opiates Screen Not Detected; U Oxycodone Screen Not Detected; U Phencyclidine Screen Not Detected; U Propoxyphene Screen Not Detected
[2020-05-04 20:38] LABS: Hematocrit 39.3 % (37.0-53.0); Hemoglobin 12.2 g/dL (13.5-17.5)
--- NOTE | 2020-05-05 04:01 | NUR ---
SHIFT SUMMARY LYING IN SUPINE WITH EYES CLOSED. DENIES FURTHER PAIN SINCE ADMINISTRATION OF PO ULTRAM FOR PAIGE. HAS STATED THAT LUQ PAIN HAS REMAINED AT 2/10. LEFT AC SL PIV IS PATENT, FLUSHES WITH EASE. HAS REMAINED STABLE THROUGHOUT SHIFT. DENEIS FURTHER NEEDS OR WANTS AT THIS TIME. SAFETY MEASURES IN PLACE. WILL CONTINUE TO MONITOR AND GIVE HAND OFF TO ONCOMING SHIFT.
[2020-05-05 04:54] LABS: BASOPHILS ABSOLUTE AUTO 0.14 K/mm3 (0.00-0.23); BASOPHILS PERCENT AUTO 1 % (0-2); EOSINOPHILS ABSOLUTE AUTO 0.69 K/mm3 (0.00-0.68); EOSINOPHILS PERCENT AUTO 7 % (0-6); Hematocrit 42.1 % (37.0-53.0); IMMATURE GRAN ABSOLUTE AUTO 0.02 K/mm3 (0.00-0.10); IMMATURE GRAN PERCENT AUTO 0 % (0-1); LYMPHOCYTES ABSOLUTE AUTO 2.26 K/mm3 (0.84-5.20); LYMPHOCYTES PERCENT AUTO 22 % (21-46); MONOCYTES ABSOLUTE AUTO 1.26 K/mm3 (0.16-1.47); MONOCYTES PERCENT AUTO 12 % (4-13); Mean Corpuscular HGB 27.3 pg (26.0-34.0); Mean Corpuscular HGB Conc 30.9 g/dL (31.5-36.5); Mean Corpuscular Volume 88 fL (80-100); Mean Platelet Volume 9.2 fL (9.1-12.4); NEUTROPHILS ABSOLUTE AUTO 5.81 K/mm3 (1.96-9.15); NEUTROPHILS PERCENT AUTO 57 % (41-73); Platelet Count 533 K/mm3 (150-400); RDW Coefficient Variation 14.3 % (11.7-14.2); RDW Standard Deviation 46.6 fL (35.1-46.3); Red Blood Cell Count 4.76 M/mm3 (4.30-5.90); White Blood Cell Count 10.18 K/mm3 (4.00-11.30)
--- NOTE | 2020-05-05 08:13 | NUR ---
0700-RECVD REPORT FROM PREVIOUS SHIFT INDER PHILLIP, PT AWAKE IN BED, A/O X 4, PLEASANT/COOPERATIVE, BED IN LOWEST POSITION, BED RAILS UP X 2 0745-DR LEON ROUNDING ON PT
--- NOTE | 2020-05-05 12:35 | NUR ---
PROVIDED PT WITH DISCHARGE INSTRUCTIONS, REMOVED PERIPHERAL IV WNL, NO WRITTEN PRESCRIPTIONS ORDERED. PT'S FAMILY MEMBER TOOK PT'S BELONGINGS TO AWAITING VEHICLE. PT TRANSFERRED TO AWAITING VEHICLE VIA WHEELCHAIR
== END 2020-05-05 12:40 | disposition home or self-care (01) ==
LOC: ER 11:53 → SURS 11:54 → ERHOLD 11:54 → SURS 18:16
PROVIDERS: Physician Assistant; ADMIT Hospitalist
DX: R10.13 Epigastric pain (principal); R68.83 Chills (without fever); S30.1XXA Contusion of abdominal wall, initial encounter; F10.20 Alcohol dependence, uncomplicated; N40.0 Benign prostatic hyperplasia without lower urinary tract symptoms; D50.0 Iron deficiency anemia secondary to blood loss (chronic); F15.10 Other stimulant abuse, uncomplicated; J44.9 Chronic obstructive pulmonary disease, unspecified; I10 Essential (primary) hypertension; I25.10 Atherosclerotic heart disease of native coronary artery without angina pectoris; E78.5 Hyperlipidemia, unspecified; Z23 Encounter for immunization; Z86.73 Personal history of transient ischemic attack (TIA), and cerebral infarction without residual deficits; Z87.891 Personal history of nicotine dependence; Z79.82 Long term (current) use of aspirin; Z79.02 Long term (current) use of antithrombotics/antiplatelets; Z79.51 Long term (current) use of inhaled steroids; Z79.899 Other long term (current) drug therapy; Z98.1 Arthrodesis status; X58.XXXA Exposure to other specified factors, initial encounter
CPT/HCPCS: 36415; 71045; 74176; 80053; 83690; 84484; 85014; 85018; 85025; 94640; 94760; 96374; 99285-25; A9270-GY; G0378; J2405